=== PATIENT | female | born 1970 | race African-American/Black ===

== ENCOUNTER 2017-03-05 15:16 | Emergency (ER) | payer OTHER ==
[~2017-03-05 15:16] MED LIST: ALBU6.7H INH; AMLO5TAB22 PO; ECHI80CA PO; METF500 PO; NORV10TA PO; OMEP20TA39 PO; POTA75TA2 PO
[2017-03-05 15:19] VITALS: BP 136/91; PULSE 72; RESP 14; TEMP 97.2; O2SAT 99
--- NOTE | 2017-03-05 15:39 | PD ---
Physical Exam Time Seen by Provider: 15:38 Narrative Pt presents for evaluation of right hip and knee pain after misstepping on the steps at school. She did not fall. Has history of right hip and knee pain; followed by [facility] orthopedic group. No other symptoms to report. Data Data Last Documented VS Vital Signs Date Time Temp Pulse Resp B/P (MAP) Pulse Ox O2 Delivery O2 Flow Rate FiO2 03/05/17 18:37 03/05/17 15:19 97.2 72 14 99 Orders Orders Hip, Uni(Ap&Lat) Wo Ap Pelvis (03/05/17 ) Knee, Complete (4vws) (03/05/17 ) Ketorolac Inj (Toradol Inj) (03/05/17 17:15) Splint Or Brace Apply/Monitor (03/05/17 18:24) Immobilizer Knee 20 Inch (03/05/17 ) [facility] Medical Record Reviewed: Yes Supervised Visit with SANIA: No Scripts Ibuprofen (Ibuprofen) 800 Mg Tab 800 MG PO Q6HR Y for PAIN, #40 TAB 0 Refills Prov: Dian Adams DO 03/05/17 Condition: Stable Lilliana Miner Mar 05, 2017 15:39
[2017-03-05] MEDS ORDERED: KETOROLAC TROMETHAMINE 60 MG/2 ML (IM) VIAL IM ONE (17:15)
--- NOTE | 2017-03-05 17:25 | PD ---
HPI Chief Complaint: Musculoskeletal Complaint Time Seen by Provider: 17:00 Travel History International Travel<30 days: No Contact w/Intl Traveler<30days: No Traveled to known affect area: No History of Present Illness HPI 46 year old female presents for evaluation of right knee and hip pain. She reports chronic right knee and hip pain. She reports that she was diagnosed with arthritis in both joints. She reports that today at work she was walking down some stairs and she "skipped a step" and landed awkwardly on her right leg. Since then she has had increased pain in her right hip and her right knee. The pain is an aching pain is worse with movement. She denies any other injuries and she has no other complaints. PFSH Past Medical History Arthritis: Yes (CERVICAL SPINE) Cancer: No Cardiovascular Problems: No Diabetes: Yes (PREDIABETIC) Diminished Hearing: No Endocrine: Yes Glaucoma: No Genitourinary: No Headaches: Yes (H/A PAIN OFF AND ON X 15 YRS) Hepatitis: No Hiatal Hernia: No Hypertension: Yes Immune Disorder: No Musculoskeletal: Yes (CHRONIC NECK PAIN/ARTHRITIS) Neurologic: No Psychiatric: No Reproductive: No (PARTIAL HYSTERECTOMY FOR FIBROID TUMORS) Respiratory: Yes (HX OF "SINUS PROBLEMS",SLEEP APNEA) Immunizations Current: Yes Thyroid Disease: No Menopausal: Yes : 2 Miscarriage: 1 : 1 Past Surgical History Abdominal Surgery: No AICD: No Body Medical Devices: NONE Cardiac Surgery: No Ear Surgery: No Endocrine Surgery: No Eye Surgery: No Genitourinary Surgery: No Gynecologic Surgery: Yes (PARTIAL HYSTERECTOMY) Hysterectomy: Yes (PARTIAL) Joint Replacement: No Oral Surgery: No Pacemaker: No Thoracic Surgery: No Other Surgery: No Social History Alcohol Use: No Tobacco Use: No Substance Use: No Allergies-Medications (Allergen,Severity, Reaction): Coded Allergies: *MDRO Multi-Drug Resistant Organism (Unverified Allergy, Unknown, 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) - 12/28/13 codeine (Unverified Adverse Reaction, Severe, HEADACHES, 01/16/17) Reported Meds & Prescriptions Reported Meds & Active Scripts Active Ibuprofen 800 Mg Tab 800 Mg PO Q6HR PRN Proventil Hfa (Albuterol Sulfate) 6.7 Gm Aero 2 Puff INH Q4H * SHAKE WELL BEFORE USE * Reported Potassimin (Potassium) 75 Mg Tab 75 Mg PO DAILY Echinacea 80 Mg Cap 1 Tab PO EVERY OTHER DAY PRN Amlodipine Besylate 5 mg (Amlodipine Besylate) 5 Mg Tab 1 Tab PO DAILY Hm Omeprazole (Omeprazole) 20 Mg Tab 20 Mg PO DAILY Glucophage 500 mg (Metformin HCl) 500 Mg Tab 500 Mg PO BIDPC Norvasc (Amlodipine Besylate) 10 Mg Tab 10 Mg PO DAILY Review of Systems Musculoskeletal: Positive: Pain, No: Limited ROM Skin: Positive Other (denies open wounds) Physical Exam Narrative GENERAL: Well-developed well-nourished female in no acute distress SKIN: Warm and dry. No bruising or soft tissue swelling CARDIOVASCULAR: Regular rate and rhythm. No murmur appreciated. RESPIRATORY: No accessory muscle use. Clear to auscultation. Breath sounds equal bilaterally. GASTROINTESTINAL: Abdomen soft, non-tender, nondistended. Hepatic and splenic margins not palpable. MUSCULOSKELETAL: No obvious deformities. Generalized tenderness to palpation to the right knee joint and lateral right hip. There is no obvious deformity, no crepitus. The patient has pain with flexion and extension of the right hip and knee. She is able to ambulate with a limp. NEUROLOGICAL: Awake and alert. No obvious cranial nerve deficits. Motor grossly within normal limits. Normal speech. Data Data Last Documented VS Vital Signs Date Time Temp Pulse Resp B/P (MAP) Pulse Ox O2 Delivery O2 Flow Rate FiO2 03/05/17 15:19 97.2 72 14 136/91 (106) 99 Orders Orders Hip, Uni(Ap&Lat) Wo Ap Pelvis (03/05/17 ) Knee, Complete (4vws) (03/05/17 ) Ketorolac Inj (Toradol Inj) (03/05/17 17:15) Splint Or Brace Apply/Monitor (03/05/17 18:24) [facility] Medical Decision Making Medical Screen Exam Complete: Yes Emergency Medical Condition: Yes Medical Record Reviewed: Yes Differential Diagnosis Exacerbation of chronic pain, osteoarthritis, ligamentous disruption, meniscal disruption, tibial plateau fracture Narrative Course 46-year-old female with chronic right knee and hip pain present with worsening pain in both joints after skipping a step walking on some stairs and landing awkwardly on her right leg. X-ray imaging obtained reveal no acute abnormalities. The patient is being discharged with a knee immobilizer and a short course of ibuprofen. Diagnosis Primary Impression: Strain of right hip Qualified Codes: S76.011A - Strain of muscle, fascia and tendon of right hip, initial encounter Additional Impression: Strain of right knee Qualified Codes: S86.911A - Strain of unspecified muscle(s) and tendon(s) at lower leg level, right leg, initial encounter Additional Instructions: Medication as needed, take with meals, follow-up with primary care physician and return for any emergent medical conditions. Scripts Ibuprofen (Ibuprofen) 800 Mg Tab 800 MG PO Q6HR Y for PAIN, #40 TAB 0 Refills Prov: Dian Adams DO 03/05/17 Disposition: 01 DISCHARGE HOME Condition: Stable Rene Mcfarland Mar 05, 2017 17:25
--- NOTE | 2017-03-05 18:03 | RADRPT ---
EXAM DATE/TIME: 03/05/2017 17:49 [facility] COMPARISON: KNEE RIGHT COMPLETE (4VWS), October 31, 2015, 15:57. INDICATIONS : Right hip and knee pain after missing a step. MEDICAL HISTORY : Arthritis. SURGICAL HISTORY : None. ENCOUNTER: Subsequent ACUITY: 1 day PAIN SCORE: 7/10 LOCATION: Right knee FINDINGS: Four view examination of the right knee demonstrates no evidence of fracture or dislocation. Bony mi neralization is normal. The articular surfaces are intact. The suprapatellar soft tissues have a no rmal configuration. CONCLUSION: 1. No acute fracture or dislocation. Lj Brown MD on March 05, 2017 at 18:01 Board Certified Radiologist. This report was verified electronically.
--- NOTE | 2017-03-05 18:09 | RADRPT ---
EXAM DATE/TIME: 03/05/2017 17:49 [facility] COMPARISON: No previous studies available for comparison. INDICATIONS : Right hip and knee pain after missing a step. MEDICAL HISTORY : Arthritis. SURGICAL HISTORY : None. ENCOUNTER: Initial ACUITY: 1 day PAIN SCORE: 7/10 LOCATION: Right hip FINDINGS: A two view examination of the right hip was performed. The primary and secondary trabecular pattern of the femoral neck is intact. No fracture is seen. The right hip joint is normally aligned. There i s some hypertrophic change of the superior lateral acetabulum. CONCLUSION: No acute disease. Sesar Dyer MD on March 05, 2017 at 18:05 Board Certified Radiologist. This report was verified electronically.
[2017-03-05] MEDS ORDERED: IBUP800T23 PO (18:22)
== END 2017-03-05 18:38 | disposition home or self-care (01) ==
LOC: NEPK 15:16
DX: S76.011A Strain of muscle, fascia and tendon of right hip, initial encounter (principal); S86.911A Strain of unspecified muscle(s) and tendon(s) at lower leg level, right leg, initial encounter; M19.90 Unspecified osteoarthritis, unspecified site; R73.03 Prediabetes; I10 Essential (primary) hypertension; W10.9XXA Fall (on) (from) unspecified stairs and steps, initial encounter; Y93.01 Activity, walking, marching and hiking; Z79.899 Other long term (current) drug therapy
CPT/HCPCS: 73502; 73564; 96372; 99284; J1885; L1830

== ENCOUNTER 2017-04-07 15:16 | Emergency (ER) | payer OTHER ==
[~2017-04-07] VITALS: Ht 175.3 cm; Wt 124.0 kg
[~2017-04-07 15:16] MED LIST changes: +IBUP1TAB7 PO
[2017-04-07 15:27] VITALS: BP 133/79; PULSE 88; RESP 16; TEMP 98.5; O2SAT 96
--- NOTE | 2017-04-07 15:41 | PD ---
HPI Chief Complaint: Musculoskeletal Complaint Time Seen by Provider: 15:34 Travel History International Travel<30 days: No Contact w/Intl Traveler<30days: No Traveled to known affect area: No History of Present Illness HPI 46 year old female here for c/o of upper back pain & muscle spasm. She reports hx of arthritis in her back & similar episodes of muscle spasms in the past. She denies fever/chills, CP, palpitations, SOB. Pain is constatnt worse with movement & relieved with rest. severity 6/10. PFSH Past Medical History Arthritis: Yes (CERVICAL SPINE) Cancer: No Cardiovascular Problems: No Diabetes: Yes (PREDIABETIC) Diminished Hearing: No Endocrine: Yes Glaucoma: No Genitourinary: No Headaches: Yes (H/A PAIN OFF AND ON X 15 YRS) Hepatitis: No Hiatal Hernia: No Hypertension: Yes Immune Disorder: No Musculoskeletal: Yes (CHRONIC NECK PAIN/ARTHRITIS) Neurologic: No Psychiatric: No Reproductive: No (PARTIAL HYSTERECTOMY FOR FIBROID TUMORS) Respiratory: Yes (HX OF "SINUS PROBLEMS",SLEEP APNEA) Immunizations Current: Yes Thyroid Disease: No ?: Not Menopausal: Yes : 2 Miscarriage: 1 : 1 Past Surgical History Abdominal Surgery: No AICD: No Body Medical Devices: NONE Cardiac Surgery: No Ear Surgery: No Endocrine Surgery: No Eye Surgery: No Genitourinary Surgery: No Gynecologic Surgery: Yes (PARTIAL HYSTERECTOMY) Hysterectomy: Yes Joint Replacement: No Oral Surgery: No Pacemaker: No Thoracic Surgery: No Other Surgery: No Social History Alcohol Use: No Tobacco Use: No Substance Use: No Allergies-Medications (Allergen,Severity, Reaction): Coded Allergies: *MDRO Multi-Drug Resistant Organism (Unverified Allergy, Unknown, 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) - 12/28/13 Reported Meds & Prescriptions Reported Meds & Active Scripts Active Ibuprofen 800 Mg Tab 800 Mg PO Q6HR PRN Proventil Hfa (Albuterol Sulfate) 6.7 Gm Aero 2 Puff INH Q4H * SHAKE WELL BEFORE USE * Reported Potassimin (Potassium) 75 Mg Tab 75 Mg PO DAILY Echinacea 80 Mg Cap 1 Tab PO EVERY OTHER DAY PRN Amlodipine Besylate 5 mg (Amlodipine Besylate) 5 Mg Tab 1 Tab PO DAILY Hm Omeprazole (Omeprazole) 20 Mg Tab 20 Mg PO DAILY Glucophage 500 mg (Metformin HCl) 500 Mg Tab 500 Mg PO BIDPC Norvasc (Amlodipine Besylate) 10 Mg Tab 10 Mg PO DAILY Review of Systems Except as stated in HPI: all other systems reviewed are Neg General / Constitutional: No: Fever Eyes: No: Visual changes HENT: No: Headaches Cardiovascular: No: Chest Pain or Discomfort Respiratory: No: Shortness of Breath Physical Exam Narrative GENERAL: alert, well appearing female who is sleeping on the stretcher. She is easily arousable. SKIN: Warm and dry. HEAD: Normocephalic. EYES: No scleral icterus. No injection or drainage. NECK: Supple, trachea midline. No JVD or lymphadenopathy. TTP right trapezius muscle. CARDIOVASCULAR: Regular rate and rhythm without murmurs, gallops, or rubs. RESPIRATORY: Breath sounds equal bilaterally. No accessory muscle use. GASTROINTESTINAL: Abdomen soft, non-tender, nondistended. MUSCULOSKELETAL: No cyanosis, or edema. BACK: Nontender without obvious deformity. No CVA tenderness. Data Data Last Documented VS Vital Signs Date Time Temp Pulse Resp B/P (MAP) Pulse Ox O2 Delivery O2 Flow Rate FiO2 04/07/17 15:27 98.5 88 16 133/79 (97) 96 Orders Orders Ketorolac Inj (Toradol Inj) (04/07/17 15:45) [facility] Medical Decision Making Medical Screen Exam Complete: Yes Emergency Medical Condition: Yes Differential Diagnosis upper back strain, trapezius muscle spasm, cervical strain Narrative Course 46 year old female here for c/o of upper back pain & muscle spasm. She reports hx of arthritis in her back & similar episodes of muscle spasms in the past. She denies fever/chills, CP, palpitations, SOB. On exam patient has R trapezius muscle spasm with no cervical midline tenderness. patient instructed to stop the Flexeril & start Robaxin PRN Diagnosis Primary Impression: Upper back strain Qualified Codes: S29.012A - Strain of muscle and tendon of back wall of thorax , initial encounter Referrals: [facility] Additional Instructions: take the medication as prescribed. stop the flexeril & start Robaxin as needed for muscle spasm follow up with your doctor Scripts Methocarbamol (Robaxin) 500 Mg Tab 500 MG PO TID for Muscle Spasm for 4 Days, TAB 0 Refills Prov: Mariaelena Preciado 04/07/17 Disposition: 01 DISCHARGE HOME Condition: Stable Mariaelena Preciado Apr 07, 2017 15:41
[2017-04-07] MEDS ORDERED: KETOROLAC TROMETHAMINE 60 MG/2 ML (IM) VIAL IM ONE (15:45)
[2017-04-07] MEDS ORDERED: CYCL5TAB PO (15:46)
[2017-04-07] MEDS ORDERED: BP MEDS (15:46)
[2017-04-07] MEDS ORDERED: ROBA500T PO (15:49)
== END 2017-04-07 16:08 | disposition home or self-care (01) ==
LOC: PHEFT 15:16
DX: S29.012A Strain of muscle and tendon of back wall of thorax, initial encounter (principal); I10 Essential (primary) hypertension; X58.XXXA Exposure to other specified factors, initial encounter
CPT/HCPCS: 96372; 99284; J1885

== ENCOUNTER 2017-07-19 07:34 | Inpatient (IN) | payer OTHER ==
[~2017-07-19] VITALS: Ht 175.3 cm; Wt 132.8 kg
[~2017-07-19 07:34] MED LIST changes: -ALBU6.7H INH; -AMLO5TAB22 PO; +CYCL5TAB PO; -ECHI80CA PO; +GABA300C5 PO; +HYDR-3516 PO; -IBUP1TAB7 PO; +LISI2.5T3 PO; -METF500 PO; +METF500T PO; -NORV10TA PO; -OMEP20TA39 PO; -POTA75TA2 PO; +ROBA500T PO; +TRIA37.53 PO
[2017-07-19] MEDS ORDERED: LACTATED RINGER'S 1000 ML INJ 1,000 ML IV SCH (08:00)
[2017-07-19] MEDS ORDERED: POVIDONE IODINE 5% (ANTISEPSIS KIT) 4 APPLICATIONS EACH NARE PRN (08:15)
[2017-07-19] MEDS ORDERED: LACTATED RINGER'S 1000 ML IV PRN (08:15)
[2017-07-19] MEDS ORDERED: CHLORHEXIDINE GLUCONATE 2 % 1 PACK (2 CLOTHS) TOPICAL PRN (08:15)
[2017-07-19] MEDS ORDERED: SODIUM CHLORID 0.9% 500 ML IV PRN (08:15)
[2017-07-19] MEDS ORDERED: ceFAZolin 2 GM PREMIX 50 ML IV SCH (08:15)
[2017-07-19] MEDS ORDERED: METOPROLOL TARTRATE 25 MG TAB PO PRN (08:15)
[2017-07-19] MEDS ORDERED: AMLO2.5T PO (09:39)
[2017-07-19] MEDS ORDERED: VITATAB43 PO (10:00)
[2017-07-19] MEDS ORDERED: SACC1CAP3 PO (10:00)
[2017-07-19 10:26] LABS: AUTOMATED NEUTROPHIL # 6.4 TH/MM3 (1.8-7.7); BASOPHIL % 0.4 % (0.0-2.0); EOSINOPHIL # 0.1 TH/MM3 (0-0.4); EOSINOPHIL % 1.3 % (0.0-4.0); HEMOGLOBIN 13.4 GM/DL (11.6-15.3); LYMPH % 27.1 % (9.0-44.0); LYMPHOCYTE # 2.7 TH/MM3 (1.0-4.8); MEAN CELL VOLUME 88.9 FL (80.0-100.0); MEAN CORPUSCULAR HEMOGLOBIN 29.8 PG (27.0-34.0); MEAN CORPUSCULAR HGB CONC 33.5 % (32.0-36.0); MONO % 6.6 % (0.0-8.0); MONOCYTE # 0.7 TH/MM3 (0-0.9); NEUT % 64.6 % (16.0-70.0); PLATELET COUNT 344 TH/MM3 (150-450); RED CELL DISTRIBUTION WIDTH 13.6 % (11.6-17.2); WHITE BLOOD COUNT 9.9 TH/MM3 (4.0-11.0)
--- NOTE | 2017-07-19 10:31 | RADRPT ---
EXAM DATE/TIME: 07/19/2017 09:47 [facility] COMPARISON: No previous studies available for comparison. INDICATIONS : Right hand pain, no injury. MEDICAL HISTORY : None. SURGICAL HISTORY : None. ENCOUNTER: Initial ACUITY: 4 - 6 days PAIN SCORE: 10/10 LOCATION: Right entire hand FINDINGS: Three view examination of the right hand demonstrates no soft tissue swelling, dislocation, or fractu re. The carpal bones appear intact. The interphalangeal and metacarpophalangeal joints are intact. Bony mineralization is normal. CONCLUSION: Unremarkable examination of the right hand. Humberto Bose Jr., MD on July 19, 2017 at 10:29 Board Certified Radiologist. This report was verified electronically.
--- NOTE | 2017-07-19 10:32 | RADRPT ---
EXAM DATE/TIME: 07/19/2017 09:51 [facility] COMPARISON: No previous studies available for comparison. INDICATIONS : Right wrist pain, no injury. MEDICAL HISTORY : None. SURGICAL HISTORY : None. ENCOUNTER: Initial ACUITY: 4 - 6 days PAIN SCORE: 10/10 LOCATION: Right entire wrist FINDINGS: 3 views of the wrist reveal a subtle linear ossification involving the dorsal aspects of the carpus o nly seen on the lateral projection. This has a heterogeneous density. No cortical margination is obse rved. No overlying soft tissue swelling. Remaining bony structures are unremarkable. Joint spaces are preserved. CONCLUSION: Suspected old trauma to the hamate. No acute abnormality. Humberto Bose Jr., MD on July 19, 2017 at 10:30 Board Certified Radiologist. This report was verified electronically.
[2017-07-19 10:57] LABS: RHEUMATOID FACTOR SCREEN NEGATIVE (NEGATIVE)
[2017-07-19] MEDS ORDERED: PHENYLEPHRINE HCL 10 MG/ML VIAL IV ONE (12:00)
[2017-07-19] MEDS ORDERED: SODIUM CHLORID 0.9% 500 ML INJ 500 ML IV ONE (12:00)
[2017-07-19] MEDS ORDERED: VECURONIUM BROMIDE 20 MG VIAL IV ONE (12:00)
[2017-07-19] MEDS ORDERED: ROCURONIUM INJ 50 MG/5 ML SYRINGE IV PUSH ONE (12:00)
[2017-07-19] MEDS ORDERED: NORMOSOL R INJ 1,000 ML IV ONE (12:00)
[2017-07-19] MEDS ORDERED: METOPROLOL TARTRATE 5 MG/5 ML VIAL IV ONE (12:00)
[2017-07-19] MEDS ORDERED: PROPOFOL 200 MG/20 ML AMP IV ONE (12:00)
[2017-07-19] MEDS ORDERED: ePHEDrine/NS 25 MG/5 ML SYRINGE IV ONE (12:00)
[2017-07-19] MEDS ORDERED: LIDOCAINE HCL 1% PF 5 ML SYRINGE OTHER ONE (12:00)
[2017-07-19] MEDS ORDERED: LACTATED RINGER'S 1000 ML INJ 2,000 ML IV ONE (12:00)
[2017-07-19] MEDS ORDERED: DEXAMETHASONE SOD PHOS 4 MG/ML VIAL IV ONE (12:00)
[2017-07-19] MEDS ORDERED: SODIUM CHLOR 0.9% 250 ML INJ 250 ML IV ONE (12:00)
[2017-07-19] MEDS ORDERED: PHENYLEPH/NS 1000 MCG/10 ML SYR IV ONE (12:00)
[2017-07-19] MEDS ORDERED: ceFAZolin INJ 1,000 MG VIAL IV ONE ×2 (12:00→19:00)
[2017-07-19] MEDS ORDERED: GELFOAM SIZE 100 ONE (12:46)
[2017-07-19] MEDS ORDERED: GENTAMICIN SULFATE 80 MG/2 ML VIAL ONE (12:46)
[2017-07-19] MEDS ORDERED: THROMBIN (TOPICAL) 5,000 UNIT VIAL ONE (12:46)
[2017-07-19] MEDS ORDERED: LIDOCAINE 1%/EPINEPHrine 1:100,000 SOLN 30 ML VIAL ONE (12:49)
[2017-07-19] MEDS ORDERED: PROPOFOL 500 MG/50 ML INJ 100 ML ONE (13:12)
[2017-07-19] MEDS ORDERED: ACETAMINOPHEN 1000 MG/100 ML 100 ML IV ONE (13:12)
[2017-07-19] MEDS ORDERED: fentaNYL CITRATE 1000 MCG/20 ML VIAL ONE ×2 (14:51→19:33)
--- NOTE | 2017-07-19 14:51 | EKG ---
Date Performed: 07/19/2017 Time Performed: 07:58:05 PTAGE: 46 years EKG: Sinus rhythm NORMAL ECG PREVIOUS TRACING : 09/19/2014 23.08 Since the prior tracing, there has been no significant herbert DOCTOR: Blake Galaviz Interpretating Date/Time 07/19/2017 14:43:39
[2017-07-19] MEDS ORDERED: PROPOFOL 500 MG/50 ML INJ 250 ML ONE (15:04)
[2017-07-19] MEDS ORDERED: PROPOFOL 500 MG/50 ML INJ 50 ML ONE (19:33)
[2017-07-19] MEDS ORDERED: PROPOFOL 1000 MG/100 ML INJ 100 ML ONE (20:38)
--- NOTE | 2017-07-19 21:30 | RADRPT ---
EXAM DATE/TIME: 07/19/2017 14:25 [facility] COMPARISON: No previous studies available for comparison. INDICATIONS : Cervical fusion. MEDICAL HISTORY : None. SURGICAL HISTORY : None. ENCOUNTER: Initial ACUITY: 1 day PAIN SCORE: Non-responsive. LOCATION: cervical spine FINDINGS: A single lateral view of the cervical spine was performed. Disc prosthesis noted at C4-5 and C6-7. CONCLUSION: 1. Fusion as above Tom Carter MD on July 19, 2017 at 21:28 Board Certified Radiologist. This report was verified electronically.
[2017-07-19 21:34] VITALS: O2SAT 100
[2017-07-19 21:45] VITALS: BP 174/91; PULSE 106; RESP 18; TEMP 100.7; O2SAT 100
[2017-07-19] MEDS ORDERED: DEXTROSE 50% IN WATER 50 ML VIAL(D50) IV PUSH PRN (21:45)
[2017-07-19] MEDS ORDERED: TERBUTALINE INJ 1 MG/ML AMP SQ PRN (21:45)
[2017-07-19] MEDS ORDERED: PROPOFOL 1000 MG/100 ML IV PRN (21:45)
[2017-07-19] MEDS ORDERED: ENALAPRILAT 1.25 MG/ML VIAL IV PUSH PRN (21:45)
[2017-07-19] MEDS ORDERED: GLUCAGON 1 MG/ML VIAL OTHER PRN (21:45)
[2017-07-19] MEDS ORDERED: PHENYLEPHRINE 40 MG in D5W 500 ML IV PRN (21:45)
--- NOTE | 2017-07-19 21:58 | PD.OP ---
Operative Report Date of Surgery: Jul 19, 2017 Preoperative Diagnosis: (1) HNP (herniated nucleus pulposus), cervical (2) Cervical disc disease with myelopathy 1. C4 5 and C6 7 herniated nucleus pulposus, possible C4 5 osteophytic disc complex 2. Cervical stenosis with myelopathy Postoperative Diagnosis: (1) HNP (herniated nucleus pulposus), cervical (2) Cervical disc disease with myelopathy 1. C4 5 and C6 7 herniated nucleus pulposus, possible C4 5 osteophytic disc complex 2. Cervical stenosis with myelopathy Procedure: 1. C4 5 and C6 7 anterior cervical discectomy, resection sequestered herniated nucleus pulposis or spinal cord decompression 2. C4 5 and C6 7 artificial disc placement (Mobi-C) Anesthesia: Gen. endotracheal Surgeon: Jose Luis Coffey Admiral[employer] Lawyer(s): Hari Bettencourt Operation and Findings: Findings: Large sequestered disc herniation extending through her annular tear at the left paramedian C4 5 level and central C6-7 level. Procedure in detail: The patient was brought into the operating room and positioned in supine position on the 3080 table with the head and neck in neutral position. Montoya catheter was placed. Lines were established by Anesthesia. Gen. endotracheal anesthesia was induced , taking care not to significantly flex or extend the patient's neck during intubation and positioning. Per anesthesia report, the patient was a difficult intubation. Leads for intraoperative neuro monitoring were placed and a baseline study obtained. All extremities were appropriately padded. The neck and upper chest were shaved with clippers and sterilely prepped and draped. Appropriate timeout procedure was performed with all personnel present and in agreement 1% Xylocaine with epinephrine was used for local infiltration over the incision site which was made transversely at the left C 5-6 level and carried sharply down through the platysma muscle. The exposure was continued medial to the sternocleidomastoid muscle and carotid artery, and lateral to the trachea and esophagus. The prevertebral fascia was elevated away from the anterior longitudinal ligament with a Kitner sponge. The longus coli muscle on each side was elevated with the Lozano elevator. The self-retaining retractor was placed with the blades beneath the longus coli muscle on each side. The appropriate levels were confirmed with intraoperative C-arm and preoperative imaging studies. The microscope was brought into place and used for the remainder of the procedure including the closure. The 14 mm distraction pins were used as needed for gentle distraction during the procedure. The procedure was performed sequentially at the C6 7 followed by the C4 5 levels. The disc and annulus was incised with a 15 blade knife and discectomy performed with pituitary biopsy forceps and straight and angled curettes. The endplates were thoroughly cleaned with a curette. The TPS drill with the 4 mm barrel bur was used to remove the posterior margin of the vertebral body to remove any osteophytes and allow adequate access to the anterior spinal canal. The thin ligament dissector was used to free up the posterior annulus and ligament from the vertebral body margin. The remainder of the resection of the posterior annulus and ligament as well as the posterior osteophyte and bilateral uncovertebral joint as needed was performed with the 2 and 3 mm thin footplate Kerrison rongeurs. An annular tear was noted at the midline C6 7 and left paramedian C4 5 levels. A large herniated nucleus pulposus was encountered posterior to the annulus at each level and was lifted away from the thecal sac with the thickened ligament dissector and removed. The appropriate size Mobi- C implant was then chosen using the trial. Using anatomic landmarks, and AP and lateral C-arm imaging, the appropriate size Mobi - C then placed with a good fit of the implant. The blunt nerve hook was used to probe beneath the implant to ensure that there was no impingement on the thecal sac or exiting nerve roots. Lateral C-arm imaging was very difficult and the patient due to her size. Repeated images were taken to verify the position of the artificial disks. The entire construct was checked with intraoperative C-arm and felt to be satisfactory. The 10 Wolof drain was brought out through a small incision in the left lower neck and secured to the skin with nylon suture and attached to sterile suction. The closure was performed with 3-0 Vicryl running for the platysma and interrupted for the subcutaneous closure, with 4-0 Vicryl running for the subcuticular closure. A dressing of sterile Mastisol, Steri-Strips, and Primapore dressing was placed. The patient was taken to recovery room in stable condition. All counts were correct at the end of the case. Estimated blood loss was 500 cc No specimen was sent to pathology. Intraoperative neuro monitoring remained stable during the procedure. Jose Luis Coffey MD Jul 19, 2017 21:58
[2017-07-19 22:00] VITALS: BP 170/90; PULSE 106; PULSE 107; RESP 17; TEMP 100; O2SAT 100
[2017-07-19] MEDS ORDERED: PILL SPLITTER OTHER PRN (22:00)
[2017-07-19] MEDS ORDERED: 1/2 NS + KCL 20 MEQ INJ 1,000 ML IV SCH (22:00)
[2017-07-19] MEDS: LABETALOL HCL 100 MG/20 ML VIAL IV PRN ×2 (22:24→23:21)
--- NOTE | 2017-07-19 22:30 | RADRPT ---
EXAM DATE/TIME: 07/19/2017 22:03 [facility] COMPARISON: CHEST PA & LAT, September 20, 2014, 4:03. INDICATIONS : Evaluate ETT tube placement MEDICAL HISTORY : Arthritis. SURGICAL HISTORY : Fusion, cervical. ENCOUNTER: Initial ACUITY: 1 day PAIN SCORE: Non-responsive. LOCATION: chest FINDINGS: A single view of the chest demonstrates bilateral airspace disease, right greater than left. Endotrac heal tube in satisfactory vision. No effusion or pneumothorax. CONCLUSION: 1. Intubation with endotracheal tube in satisfactory position. Tom Carter MD on July 19, 2017 at 22:25 Board Certified Radiologist. This report was verified electronically.
[2017-07-19] MEDS: PROPOFOL 1000 MG/100 ML INJ 100 ML IV PRN (22:46)
[2017-07-19 23:57] VITALS: O2SAT 100
[2017-07-20] VITALS (20 sets, daily range): BP systolic 114–176; BP diastolic 71–85; PULSE 97–122; RESP 14–29; TEMP 98.5–101; O2SAT 93–100
[2017-07-20] MEDS: PROPOFOL 1000 MG/100 ML INJ 100 ML IV PRN ×3 (01:55→06:27)
[2017-07-20 04:23] LABS: AUTOMATED NEUTROPHIL # 12.3 TH/MM3 (1.8-7.7); BASOPHIL % 0.1 % (0.0-2.0); HEMATOCRIT 36.2 % (35.0-46.0); HEMOGLOBIN 12.2 GM/DL (11.6-15.3); LYMPH % 11.1 % (9.0-44.0); LYMPHOCYTE # 1.7 TH/MM3 (1.0-4.8); MEAN CELL VOLUME 89.1 FL (80.0-100.0); MEAN CORPUSCULAR HEMOGLOBIN 30.1 PG (27.0-34.0); MEAN CORPUSCULAR HGB CONC 33.7 % (32.0-36.0); MEAN PLATELET VOLUME 6.9 FL (7.0-11.0); MONO % 6.4 % (0.0-8.0); NEUT % 82.4 % (16.0-70.0); PLATELET COUNT 331 TH/MM3 (150-450); RED BLOOD COUNT 4.07 MIL/MM3 (4.00-5.30); WHITE BLOOD COUNT 14.9 TH/MM3 (4.0-11.0)
[2017-07-20 04:29] LABS: PROTHROMBIN TIME - PATIENT 10.3 SEC (9.8-11.6)
--- NOTE | 2017-07-20 04:39 | PD.CONS ---
[facility] Service Critical Care Medicine Consult Requested By Dr. Leach Reason for Consult Vent management Primary Care Physician Priyanka Potter MD History of Present Illness 46 yo F with PMH of DM, hypertension, obesity, obstructive sleep apnea, cervical stenosis with myelopathy who has undergone C4/C5 and C6/C67 discectomy and disk prosthesis by Dr. Coffey. Discussed with Dr. Leach who received report that she had difficult airway due to poor neck mobility, intubated with Glidescope. Initially some hypoxia and bloody respiratory secretions during case but improved following lung recruitment. Received 3500 crystalloid, EBL 500, urine output 1 L. She received Decadron 8 mg IV in the OR. Review of Systems ROS Limitations: Intubated Past Family Social History Allergies: Coded Allergies: *MDRO Multi-Drug Resistant Organism (Unverified Allergy, Unknown, 04/07/17) MRSA (elbow wound) - 12/28/13 Past Medical History Asthma Obesity Obstructive sleep apnea Cervical myelopathy Hypertension Diabetes History of uterine fibroids now status post hysterectomy Past Surgical History Laparoscopic cholecystectomy and liver biopsy 01/31/[address] Jiang Supracervical hysterectomy, bilateral salpingectomy and cystoscopy by Dr. Haile Reported Medications Flexeril 5 mg by mouth 3 times a day Robaxin 500 mg by mouth 3 times a day Norvasc 5 mill grams by mouth daily Lortab 5/325 one every 6 hours as needed for pain Lisinopril 2.5 mg by mouth daily Neurontin 300 mg by mouth 3 times a day Triamterene 37.5 mg by mouth daily HCTZ 25 mg by mouth daily Probiotic daily Metformin 500 mg by mouth twice a day B-12 and folic acid supplementation 500/400 g by mouth daily Family History Unable to obtain directly from patient due to clinical condition. Records indicate that her mother had hypertension and father had amyloidosis Social History Unable to obtain directly from patient due to clinical condition. Records indicate that she was a lifetime nonsmoker without alcohol or illicit drug use Physical Exam Vital Signs Vital Signs Date Time Temp Pulse Resp B/P (MAP) Pulse Ox O2 Delivery O2 Flow Rate FiO2 07/20/17 04:00 107 07/20/17 04:00 100.4 107 14 164/80 (108) 100 07/20/17 03:06 100 50 07/20/17 02:00 105 07/20/17 01:00 100.5 07/20/17 00:00 101.0 97 14 176/85 (115) 100 Automatic Cuff 07/19/17 23:57 100 50 07/19/17 23:00 100 Mechanical Ventilator 50 07/19/17 22:00 100.0 107 17 170/90 (116) 100 Automatic Cuff 07/19/17 22:00 106 07/19/17 22:00 100 Mechanical Ventilator 100 07/19/17 21:45 100.7 106 18 174/91 (118) 100 07/19/17 21:34 100 50 07/19/17 10:02 98.8 89 18 142/90 (107) 97 Physical Exam Drips: Propofol 50 g per KG per minute 0.45 NaCl with 20 mEq of KCl per liter at 100 mL per hour GENERAL: Obese female who orotracheally intubated and on mechanical ventilation laying in ISC bed. SKIN: Warm and dry, adequately perfused HEAD: Atraumatic. Normocephalic. EYES: Pupils equal and round, 2 mm and reactive bilaterally. No scleral icterus. No injection or drainage. ENT: No nasal bleeding or discharge. Mucous membranes pink and moist, drooling. NECK: Trachea midline. No JVD. Cervical collar in place. SANTOSH drain with serosanginous output. Dressing in place anterior neck, clean/dry. CARDIOVASCULAR: Regular rate and rhythm. No murmurs rubs or gallops. RESPIRATORY: Orotracheally intubated and synchronous with ventilator. Clear to auscultation. Breath sounds equal bilaterally. Audible cuff leak is present when cuff deflated. GASTROINTESTINAL: Abdomen obese, soft, non-tender, nondistended. Bowel sounds present. MUSCULOSKELETAL: Extremities without clubbing, cyanosis, or edema. No obvious deformities. VASC: Left radial art line in place with distal perfusion intact. NEUROLOGICAL: Opens eyes to voice while on sedation. No obvious cranial nerve deficits. Follows commands by squeezing hands with normal hand net developer bilaterally. Moves lower extremities to command. Laboratory Laboratory Tests Test 07/19/17 09:35 07/19/17 09:55 07/19/17 22:57 07/20/17 04:08 White Blood Count 9.9 14.9 Red Blood Count 4.50 4.07 Hemoglobin 13.4 12.2 Hematocrit 40.0 36.2 Mean Corpuscular Volume 88.9 89.1 Mean Corpuscular Hemoglobin 29.8 30.1 Mean Corpuscular Hemoglobin Concent 33.5 33.7 Red Cell Distribution Width 13.6 14.0 Platelet Count 344 331 Mean Platelet Volume 7.0 6.9 Neutrophils (%) (Auto) 64.6 82.4 Lymphocytes (%) (Auto) 27.1 11.1 Monocytes (%) (Auto) 6.6 6.4 Eosinophils (%) (Auto) 1.3 0.0 Basophils (%) (Auto) 0.4 0.1 Neutrophils # (Auto) 6.4 12.3 Lymphocytes # (Auto) 2.7 1.7 Monocytes # (Auto) 0.7 1.0 Eosinophils # (Auto) 0.1 0.0 Basophils # (Auto) 0.0 0.0 CBC Comment DIFF FINAL DIFF FINAL Differential Comment Erythrocyte Sedimentation Rate 17 Rheumatoid Factor Screen NEGATIVE Rheumatoid Factor Titer Nasal Screen MRSA (PCR) MRSA NOT DETECTED Blood Gas Puncture Site ART LINE Blood Gas Patient Temperature 98.6 Blood Gas HCO3 24 Blood Gas Base Excess 0.5 Blood Gas Oxygen Saturation 96 Arterial Blood pH 7.43 Arterial Blood Partial Pressure CO2 37 Arterial Blood Partial Pressure O2 130 Arterial Blood Oxygen Content 17.3 Arterial Blood Carboxyhemoglobin 0.9 Arterial Blood Methemoglobin 1.5 Blood Gas Hemoglobin 12.7 Oxygen Delivery Device VENTILATOR Blood Gas Ventilator Setting SIMV-VC Blood Gas Inspired Oxygen 50 Prothrombin Time 10.3 Prothromb Time International Ratio 1.0 Activated Partial Thromboplast Time 25.1 Result Diagram: 07/19/17 0935 Assessment and Plan Problem List: (1) Difficult airway for intubation ICD Code: T88.4XXA - Failed or difficult intubation, initial encounter Status: Acute (2) Acute respiratory failure ICD Code: J96.00 - Acute respiratory failure, unspecified whether with hypoxia or hypercapnia Status: Acute (3) Aspiration into airway ICD Code: T17.908A - Unspecified foreign body in respiratory tract, part unspecified causing other injury, initial encounter Status: Acute (4) Cervical disc disease with myelopathy ICD Code: M50.00 - Cervical disc disorder with myelopathy, unspecified cervical region Status: Acute (5) HOOD (obstructive sleep apnea) ICD Code: G47.33 - Obstructive sleep apnea (adult) (pediatric) Status: Chronic (6) Asthma ICD Code: J45.909 - Unspecified asthma, uncomplicated Status: Chronic (7) Morbid obesity with BMI of 40.0-44.9, adult ICD Code: E66.01 - Morbid (severe) obesity due to excess calories; Z68.41 - Body mass index (BMI) 40.0-44.9, adult Status: Chronic (8) HTN (hypertension) ICD Code: I10 - Essential (primary) hypertension Status: Chronic (9) Diabetes mellitus ICD Code: E11.9 - Type 2 diabetes mellitus without complications Status: Chronic Assessment and Plan NEURO: Cervical stenosis with cervical myelopathy now status post C for C5 and C6-C7 discectomy with artificial disc placement by Dr. Coffey 07/19/17 Propofol for sedation. Target RASS -2 Lortab 7.5 one to 2 tabs as needed for pain. Morphine as needed for breakthrough pain. Continue Neurontin 300 mg by mouth 3 times a day Monitor SANTOSH output with management per neurosurgery Dr. Coffey following. RESP: Obstructive sleep apnea Asthma Difficult airway due to limited neck mobility To remain intubated overnight. Transition to PRVC tidal volume 450/rate 14/I time 0.8/PEEP 8/FiO2 50%. Wean FiO2 for sat greater than 92% CXR with bilateral opacities particularly R perihilar. Now with fever which may be secondary to aspiration given challenges of airway, Abx as per below. May have component of pulmonary edema and in effort to optimize for extubation will KVO IVF and give Lasix 40 mg IV now. Followup CXR. CPAP Trials later in the morning with plan to extubate. Reportedly was not using CPAP at home. Will encourage use post extubation. Duoneb q6 hours Albuterol q2 hours prn Decadron 8 mg IV given 07/19. CV: HTN Continue Norvasc 5 mg by mouth daily Continue lisinopril 2.5 mill grams by mouth daily Continue triamterene 37.5/HCTZ 25 mg by mouth daily Labetalol as needed for systolic blood pressure greater than 170 Follow-up 2-D echo GI: Morbid obesity Insert orogastric tube and placed to low intermittent wall suction. Swallow evaluation when extubated Encourage weight loss FEN/RENAL: ID: Received perioperative cefazolin. Now with fever and suspected aspiration given right perihilar infiltrate. Will obtain blood and sputum culture and initiate antibiotics with Unasyn 3 g IV every 6 hours to cover community acquired organisms/aspiration. Hold further perioperative cefazolin while on unasyn. HEME: Follow-up CBC ENDO: Diabetes mellitus Hold metformin Bedside glucose every 6 hours with low dose insulin sliding scale as indicated. PROPH: SCDs for DVT prophylaxis. Pharmacologic DVT prophylaxis when appropriate per neurosurgery. Protonix 40 mg IV daily for stress ulcer prophylaxis. ACCESS: Peripheral IV providing adequate access at this time. Left radial art line placed in OR 07/19/17. D/c today post extubation. Level III Consult Problem Qualifiers (1) Difficult airway for intubation: Qualified Codes: T88.4XXD - Failed or difficult intubation, subsequent encounter (2) Acute respiratory failure: Qualified Codes: J96.01 - Acute respiratory failure with hypoxia Danita Naranjo MD Jul 20, 2017 04:39
[2017-07-20 04:45] LABS: BICARBONATE 27.3 MEQ/L (21.0-32.0); CALCIUM 7.8 MG/DL (8.5-10.1); CREATININE 0.7 MG/DL (0.50-1.00)
[2017-07-20] MEDS ORDERED: GLUCAGON 1 MG/ML VIAL OTHER PRN (04:45)
[2017-07-20] MEDS ORDERED: ACETAMINOPHEN 650 MG/20.3 ML UDC PO PRN (04:45)
[2017-07-20] MEDS ORDERED: DEXTROSE 50% IN WATER 50 ML VIAL(D50) IV PUSH PRN (04:45)
[2017-07-20] MEDS ORDERED: FUROSEMIDE 20 MG/2 ML VIAL IV PUSH ONE (05:00)
[2017-07-20] MEDS ORDERED: FUROSEMIDE 40 MG/4 ML VIAL IV PUSH ONE (05:15)
[2017-07-20] MEDS ORDERED: MAGNESIUM SULFATE INJ 2 GM in SODIUM CHLORIDE 0.9% INJ 96 ML IV PRN (05:30)
[2017-07-20] MEDS ORDERED: POTASSIUM CHLORIDE 25 MEQ EFFERVESCENT TAB PO PRN (05:30)
[2017-07-20] MEDS ORDERED: POTASSIUM CHLOR 20 MEQ PREMIX 100 ML IV PRN ×2 (05:30)
[2017-07-20] MEDS ORDERED: MAGNESIUM SULFATE INJ 4 GM in SODIUM CHLORIDE 0.9% INJ 92 ML IV PRN (05:30)
[2017-07-20] MEDS ORDERED: SODIUM PHOSPHATE INJ 30 MMOL in SODIUM CHLOR 0.9% 250 ML INJ 240 ML IV PRN (05:30)
[2017-07-20] MEDS ORDERED: POTASSIUM CHLOR 40 MEQ PREMIX 100 ML IV PRN ×2 (05:30)
[2017-07-20] MEDS ORDERED: MAGNESIUM OXIDE 400 MG TAB PO PRN (05:30)
[2017-07-20] MEDS ORDERED: POTASSIUM PHOSPHATE MONOBASIC 500 MG TAB PO/TUBE PRN (05:30)
[2017-07-20] MEDS ORDERED: POTASSIUM PHOSPHATE INJ 30 MMOL in SODIUM CHLOR 0.9% 250 ML INJ 250 ML IV PRN (05:30)
[2017-07-20] MEDS ORDERED: POTASSIUM PHOSPHATE MONOBASIC 500 MG TAB PO PRN (05:30)
[2017-07-20] MEDS ORDERED: INSULIN ASPART SUPPLEMENTAL SCALE SQ SCH (06:00)
[2017-07-20] MEDS ORDERED: RESP: ALBUTEROL 2.5 MG/3 ML NEB (PRN) NEB (06:15)
[2017-07-20] MEDS: RESP: ALBUTEROL 2.5 MG/IPRATROPIUM 0.5 MG NEB (SCH) NEB ×4 (06:15→22:27)
[2017-07-20] MEDS: AMPICILLIN-SULBACTAM INJ 3 GM in SODIUM CHLORIDE 0.9% INJ 100 ML IV SCH ×4 (06:59→23:15)
[2017-07-20] MEDS: CHLORHEXIDINE 0.12% (ORAL KIT) 15 ML CUP MT SCH ×2 (07:41→20:00)
[2017-07-20] MEDS ORDERED: INSULIN NovoLIN REGULAR SUPPLEMENTAL SCALE SQ SCH (08:00)
--- NOTE | 2017-07-20 08:45 | HHI.NSPN ---
History Chief Complaint: Unable to obtain due to patient's clinical condition. Interval History 07/19: The patient presented to [facility] to undergo a C4-5 and C6-7 anterior cervical discectomy with placement of a Mobi-C device following resection of a sequestered herniated nucleus pulposis for spinal cord decompression. Post-operatively the patient was transferred to the ISC unit for further care and monitoring due to her not being able to be extubated. 07/20: When seen this morning the patient is intubated and mechanically ventilated. She was on propofol which was held when seen. She did open her eyes to voice and followed commands with all extremities. The bronchoscopy cart is outside the room. System Review Comments Unable to obtain due to patient's clinical condition. Exam Results Vital Signs Date Time Temp Pulse Resp B/P (MAP) Pulse Ox O2 Delivery O2 Flow Rate FiO2 07/20/17 07:57 100 40 07/20/17 07:00 Mechanical Ventilator 07/20/17 06:00 111 07/20/17 04:00 100.4 14 164/80 (108) Intake and Output 07/20/17 07/20/17 07/21/17 08:00 16:00 00:00 Intake Total 1069 ml Output Total 2245 ml Balance -1176 ml Physical Examination GENERAL: Drowsy, sedation being held. Opens eyes to voice and interacts. No apparent distress. HEENT: Normocephalic, atraumatic. PERRLA 3 mm brisk, EOM appear intact. Orally intubated. OGT. NECK: Fleetwood J cervical collar in place. Left anterior neck surgical incision w/ intact dressing w/o any shadowing, SANTOSH drain to bulb suction w/serosanguinous drainage, appears to be NTTP. Midline cervical spine appears to be NTTP. No JVD. Trachea midline. RESPIRATORY: Slightly coarse on the right, extremely decreased on the left, appears to have better excursion on right, non-laboured, intubated and mechanically ventilated. CARDIOVASCULAR: S1S2 w/rapid but regular rate w/o M/G/R, radial & pedal pulses 2 + bilaterally, cap refill < 2 sec, no pedal edema. Monitor is sinus tachycardia w/o any ectopy noted. GASTROINTESTINAL: Abdomen soft, nontender to palpation, bowel sounds not appreciated, OGT w/brownish particulate drainage to LIWS. GENITOURINARY: Montoya catheter to BSD w/clear yellow urine. MUSCULOSKELETAL: Moves all extremities to command. NEUROLOGICAL: Drowsy, sedation held. Opened eyes to voice but noted later to open spontaneously. PERRLA 3 mm brisk, EOM appear intact. Nonverbal, intubated. Squeezes with both hands and moves lower extremities to command. Gives thumbs up to command with right hand. Lab, Micro, Other Results Recent Impressions Wrist X-Ray 07/19/17 0000 Signed Impressions: Service Date/Time: July 09:51 - CONCLUSION: Suspected old trauma to the hamate. No acute abnormality. Humberto Bose Jr., MD Hand X-Ray 07/19/17 0000 Signed Impressions: Service Date/Time: July 09:47 - CONCLUSION: Unremarkable examination of the right hand. Humberto Bose Jr., MD Chest X-Ray 07/19/17 0000 Signed Impressions: Service Date/Time: July 22:03 - CONCLUSION: 1. Intubation with endotracheal tube in satisfactory position. Tom Carter MD Cervical Spine X-Ray 07/19/17 0000 Signed Impressions: Service Date/Time: July 14:25 - CONCLUSION: 1. Fusion as above Tom Carter MD Laboratory Tests Test 07/19/17 09:35 07/19/17 09:55 07/19/17 22:57 07/20/17 04:08 White Blood Count 9.9 TH/MM3 14.9 TH/MM3 Red Blood Count 4.50 MIL/MM3 4.07 MIL/MM3 Hemoglobin 13.4 GM/DL 12.2 GM/DL Hematocrit 40.0 % 36.2 % Mean Corpuscular Volume 88.9 FL 89.1 FL Mean Corpuscular Hemoglobin 29.8 PG 30.1 PG Mean Corpuscular Hemoglobin Concent 33.5 % 33.7 % Red Cell Distribution Width 13.6 % 14.0 % Platelet Count 344 TH/MM3 331 TH/MM3 Mean Platelet Volume 7.0 FL 6.9 FL Neutrophils (%) (Auto) 64.6 % 82.4 % Lymphocytes (%) (Auto) 27.1 % 11.1 % Monocytes (%) (Auto) 6.6 % 6.4 % Eosinophils (%) (Auto) 1.3 % 0.0 % Basophils (%) (Auto) 0.4 % 0.1 % Neutrophils # (Auto) 6.4 TH/MM3 12.3 TH/MM3 Lymphocytes # (Auto) 2.7 TH/MM3 1.7 TH/MM3 Monocytes # (Auto) 0.7 TH/MM3 1.0 TH/MM3 Eosinophils # (Auto) 0.1 TH/MM3 0.0 TH/MM3 Basophils # (Auto) 0.0 TH/MM3 0.0 TH/MM3 CBC Comment DIFF FINAL DIFF FINAL Differential Comment Erythrocyte Sedimentation Rate 17 mm/hr Rheumatoid Factor Screen NEGATIVE Rheumatoid Factor Titer IU/ML Nasal Screen MRSA (PCR) MRSA NOT DETECTED Blood Gas Puncture Site ART LINE Blood Gas Patient Temperature 98.6 Blood Gas HCO3 24 mmol/L Blood Gas Base Excess 0.5 mmol/L Blood Gas Oxygen Saturation 96 % Arterial Blood pH 7.43 Arterial Blood Partial Pressure CO2 37 mmHg Arterial Blood Partial Pressure O2 130 mmHg Arterial Blood Oxygen Content 17.3 Vol % Arterial Blood Carboxyhemoglobin 0.9 % Arterial Blood Methemoglobin 1.5 % Blood Gas Hemoglobin 12.7 G/DL Oxygen Delivery Device VENTILATOR Blood Gas Ventilator Setting SIMV-VC Blood Gas Inspired Oxygen 50 % Prothrombin Time 10.3 SEC Prothromb Time International Ratio 1.0 RATIO Activated Partial Thromboplast Time 25.1 SEC Blood Urea Nitrogen 6 MG/DL Creatinine 0.70 MG/DL Random Glucose 129 MG/DL Calcium Level 7.8 MG/DL Sodium Level 141 MEQ/L Potassium Level 3.7 MEQ/L Chloride Level 107 MEQ/L Carbon Dioxide Level 27.3 MEQ/L Anion Gap 7 MEQ/L Estimat Glomerular Filtration Rate 109 ML/MIN Test 07/20/17 05:43 Blood Gas Puncture Site ART LINE Blood Gas Patient Temperature 98.6 Blood Gas HCO3 24 mmol/L Blood Gas Base Excess 0.5 mmol/L Blood Gas Oxygen Saturation 96 % Arterial Blood pH 7.43 Arterial Blood Partial Pressure CO2 37 mmHg Arterial Blood Partial Pressure O2 131 mmHg Arterial Blood Oxygen Content 17.4 Vol % Arterial Blood Carboxyhemoglobin 0.7 % Arterial Blood Methemoglobin 1.7 % Blood Gas Hemoglobin 12.7 G/DL Oxygen Delivery Device VENTILATOR Blood Gas Ventilator Setting PRVC AV Blood Gas Inspired Oxygen 50 % Medical Decision Making Impression and Plan Impression: (1) HNP (herniated nucleus pulposus), cervical (2) Cervical disc disease with myelopathy 1. C4 5 and C6 7 herniated nucleus pulposus, possible C4 5 osteophytic disc complex 2. Cervical stenosis with myelopathy The patient is doing fair this morning. She remains intubated and mechanically ventilated but does open eyes spontaneously and follows commands. Reviewed labs for today. Leukocytosis, most likely inflammatory response to surgery. INR 1.0 and aPTT 25.1. Sodium 141. POD # 1 () s/p: 1. C4 5 and C6 7 anterior cervical discectomy, resection sequestered herniated nucleus pulposis or spinal cord decompression 2. C4 5 and C6 7 artificial disc placement (Mobi-C) Plan: Critical care management per [employer] Consultant. Neuro checks. Stat CT brain for any decline in neuro status. Fleetwood J cervical collar. Hold pharmacologic DVT prophylaxis. Mechanical DVT prophylaxis. Stress ulcer prophylaxis. Greg Frazier Jul 20, 2017 08:45
[2017-07-20] MEDS: PANTOPRAZOLE SODIUM 40 MG VIAL IVP SCH (08:51)
[2017-07-20] MEDS ORDERED: amLODIPine BESYLATE 5 MG TAB PO SCH (09:00)
[2017-07-20] MEDS ORDERED: PT:PROBIOTIC 250 MG PO SCH (09:00)
[2017-07-20] MEDS ORDERED: ROCURONIUM INJ 100 MG/10 ML VIAL IV ONE (09:00)
[2017-07-20] MEDS ORDERED: NON-FORMULARY DRUG (Cobalamine Combinations (Vitamin B12-Folic Acid) 1 TAB) PO SCH (09:00)
[2017-07-20] MEDS ORDERED: metFORMIN HCL 500 MG TAB PO SCH (09:00)
[2017-07-20] MEDS ORDERED: NON-FORMULARY DRUG (Saccharomyces Boulardii (Probiotic) 250 MG) PO SCH (09:00)
[2017-07-20] MEDS ORDERED: NON-FORMULARY DRUG (Lisinopril 2.5 MG) PO SCH (09:00)
[2017-07-20] MEDS: TRIAMTERENE/HCTZ 37.5 MG/25 MG CAP PO SCH (09:00)
[2017-07-20] MEDS ORDERED: ETOMIDATE 40 MG/20 ML VIAL IV PUSH ONE (09:00)
[2017-07-20] MEDS ORDERED: MIDAZOLAM HCL 2 MG/2 ML VIAL IV PUSH ONE (09:00)
[2017-07-20] MEDS ORDERED: [UNRECOGNIZED DRUG - OTHER] PO SCH (09:00)
--- NOTE | 2017-07-20 09:00 | HHI.CCPN ---
Subjective Remarks/Hospital Course 46 yo F with PMH of DM, hypertension, obesity, obstructive sleep apnea, cervical stenosis with myelopathy who has undergone C4/C5 and C6/C67 discectomy and disk prosthesis by Dr. Coffey. Discussed with Dr. Leach who received report that she had difficult airway due to poor neck mobility, intubated with Glidescope. Initially some hypoxia and bloody respiratory secretions during case but improved following lung recruitment. Received 3500 crystalloid, EBL 500, urine output 1 L. She received Decadron 8 mg IV in the OR. Subjective 07/20: Resting in bed in no acute distress. Arousable falls commands. Afebrile. Weaning off sedation with attempt extubated Objective Vital Signs Date Time Temp Pulse Resp B/P (MAP) Pulse Ox O2 Delivery O2 Flow Rate FiO2 07/20/17 08:00 100.4 115 18 121/72 (88) 100 07/20/17 07:57 40 07/20/17 07:00 Mechanical Ventilator Intake and Output 07/20/17 07/20/17 07/21/17 08:00 16:00 00:00 Intake Total 1069 ml Output Total 2245 ml Balance -1176 ml Result Diagram: 07/20/17 0408 07/20/17 0408 Other Results Microbiology Date/Time Source Procedure Growth Status 07/20/17 06:00 Blood Peripheral Aerobic Blood Culture Pending Received 07/20/17 06:00 Blood Peripheral Anaerobic Blood Culture Pending Received 07/20/17 06:31 Sputum Endotracheal Gram Stain Pending Received 07/20/17 06:31 Sputum Endotracheal Sputum Culture Pending Received Imaging Last Impressions Wrist X-Ray 07/19/17 0000 Signed Impressions: Service Date/Time: July 09:51 - CONCLUSION: Suspected old trauma to the hamate. No acute abnormality. Humberto Bose Jr., MD Hand X-Ray 07/19/17 0000 Signed Impressions: Service Date/Time: July 09:47 - CONCLUSION: Unremarkable examination of the right hand. Humberto Bose Jr., MD Chest X-Ray 07/19/17 0000 Signed Impressions: Service Date/Time: July 22:03 - CONCLUSION: 1. Intubation with endotracheal tube in satisfactory position. oTm Carter MD Cervical Spine X-Ray 07/19/17 0000 Signed Impressions: Service Date/Time: July 14:25 - CONCLUSION: 1. Fusion as above Tom Carter MD Objective Remarks GENERAL:46 yo female who orotracheally intubated and on mechanical ventilation laying in ISC bed. SKIN: Warm and dry, adequately perfused HEAD: Atraumatic. Normocephalic. EYES: Pupils equal and round, 2 mm and reactive bilaterally. No scleral icterus. No injection or drainage. ENT: No nasal bleeding or discharge. Mucous membranes pink and moist, drooling. NECK: Trachea midline. No JVD. Cervical collar in place. SANTOSH drain with serosanguineous output. Dressing in place anterior neck, clean/dry. CARDIOVASCULAR: Regular rate and rhythm. No murmurs rubs or gallops. RESPIRATORY: Clear to auscultation. Breath sounds equal bilaterally. GASTROINTESTINAL: Abdomen obese, soft, non-tender, nondistended. Bowel sounds present. MUSCULOSKELETAL: Extremities withoutedema. No obvious deformities. VASC: Left radial art line in place with distal perfusion intact. NEUROLOGICAL: Opens eyes to voice while on sedation. No obvious cranial nerve deficits. Follows commands by squeezing hands with normal hand senior java web developer bilaterally. Moves lower extremities to command. Urinary Catheter: Yes Assessment to: Continue Montoya insert reason: Prolonged Immobilization Vascular Central Line Catheter: No Assessment to: Continue A/P Assessment and Plan NEURO/PSYCH: Chronic neck pain secondary to cervical myelopathy Severe C6 7 herniated nucleus pulposus Mildly severe central to left C4/5 herniated nucleus pulposus Moderate C5/6 stenosis without definitive cord compression Postop day #1 C4/C5 and C6-C7 anterior cervical discectomy, resection sequestered herniated nucleus pulposis with spinal cord decompression, C4/5 and C6/7 with artificial disc placement (Mobi - C) Propofol currently at 50 mcg/kg per minute for sedation while intubated Goal of RASS -2 Daily sedation vacation Hydrocodone/acetaminophen 7.5/325 one tablet every 6 hours pain 3-5, 2 tablets pain 6-10. Patient is on hydrocodone/acetaminophen 5/325 one tablet every 6 hours when necessary at home Morphine 5 mill grams IV every 4 hours as needed for breakthrough pain. Continue gabapentin 300 mg by mouth 3 times a day Holding methocarbamol 500 mg by mouth 3 times a dayhome medication Holding cyclobenzaprine 5 mill grams by mouth 3 times a day/home medication Monitor SANTOSH output with management per neurosurgery. -[address] Coffey following. Rheumatoid factor negative. ESR 17 RESP: Obstructive sleep apnea Asthma Difficult airway due to limited neck mobility PRVC 14/450/0.8/8/40 Ventilator bundle Albuterol/ipratropium aerosols every 4 hours with albuterol aerosols every 2 hours. Dyspnea CPAP Trials later in the morning with plan to extubate. Per prior documented note, not using CPAP at home. Will encourage reevaluation post extubation. Decadron 8 mg IV given 07/19. Beverly scope, Meneses airway with EBUS tower/bronchoscopy at bedside for extubation CV: Essential hypertension Continue amlodipine 5 mg by mouth daily Continue lisinopril 2.5 milligrams by mouth daily Continue triamterene 37.5/hydrochlorothiazide 25 mg 1 tablet by mouth daily Labetalol as needed for systolic blood pressure greater than 170 Follow-up 2-D echo EKG on admission revealed normal sinus rhythm rate of 95. Normal VA, QRS and QT intervals. GI: OGT to LIWS Swallow evaluation when extubated Pantoprazole for GI prophylaxis Docusate sodium 100 mg twice a day for bowel regimen FEN/RENAL: Creatinine currently within normal limits Monitor urine output Accurate I's and O's Continue B12/folate 500 mcg/400 mcg 1 tablet once a day/home medication ID: Possible aspiration pneumonia versus community-acquired Preoperative cefazolin completed Currently on ampicillin/sulbactam 3 g IV every 6 hours Pertinent cultures 07/20 - blood cultures 2 - pending 07/20 - sputum - pending Saccharomyces boulardii 250 mg daily/home medication probiotics continued per neurosurgery HEME: Leukocytosis A.m. CBC. Monitor trends ENDO: Diabetes mellitus Hold metformin 500 mg by mouth twice a day/home medication Bedside glucose every 6 hours with low dose Novulog insulin sliding scale to maintain euglycemia MSK Old right hamate bone fracture Elevated BMI greater than 43 No surgical intervention for right hamate bone fracture. Weight loss encouraged Access - Utilize peripheral IV. Central line if indicated - Left radial arterial line placed 07/19 Prophylaxis - GI - pantoprazole 40 mill grams IV daily - DVT - SCD/pharmacological prophylaxis when okay with neurosurgery 15 additional minutes spent in care of this patient Rolando Corbin MD Jul 20, 2017 09:00
[2017-07-20] MEDS: DOCUSATE SODIUM 100 MG CAP PO SCH ×2 (10:27→19:26)
[2017-07-20] MEDS: amLODIPine BESYLATE 5 MG TAB PO SCH (10:27)
[2017-07-20] MEDS: GABAPENTIN 300 MG CAP PO SCH ×3 (10:27→17:32)
[2017-07-20] MEDS: LISINOPRIL 5 MG TAB PO SCH (10:27)
[2017-07-20] MEDS ORDERED: PHENOL 1.4% SOLN 180 ML BTL OROPHARYNG PRN (11:00)
[2017-07-20] MEDS ORDERED: 1/2 NS + KCL 20 MEQ INJ 1,000 ML IV SCH (12:00)
[2017-07-20] MEDS: INSULIN ASPART SUPPLEMENTAL SCALE SQ SCH ×3 (12:00→19:27)
[2017-07-20] MEDS: ACETAMINOPHEN/HYDROcodone 325 MG/7.5 MG TAB PO PRN ×2 (14:08→19:26)
[2017-07-20] MEDS: MORPHINE SULFATE 8 MG/ML INJ IV PUSH PRN (23:15)
[2017-07-21] VITALS (16 sets, daily range): BP systolic 120–139; BP diastolic 63–86; PULSE 98–121; RESP 12–24; TEMP 98.6–100.1; O2SAT 92–98
[2017-07-21] MEDS: ACETAMINOPHEN/HYDROcodone 325 MG/7.5 MG TAB PO PRN ×5 (01:44→20:34)
[2017-07-21] MEDS: MORPHINE SULFATE 8 MG/ML INJ IV PUSH PRN (04:48)
[2017-07-21] MEDS: RESP: ALBUTEROL 2.5 MG/IPRATROPIUM 0.5 MG NEB (SCH) NEB ×4 (05:20→20:45)
[2017-07-21] MEDS: AMPICILLIN-SULBACTAM INJ 3 GM in SODIUM CHLORIDE 0.9% INJ 100 ML IV SCH ×3 (06:01→17:28)
--- NOTE | 2017-07-21 06:07 | RADRPT ---
EXAM DATE/TIME: 07/21/2017 04:11 [place] COMPARISON: CHEST SINGLE AP, July 19, 2017, 22:03. INDICATIONS : Short of breath. MEDICAL HISTORY : Arthritis. SURGICAL HISTORY : Fusion, cervical. ENCOUNTER: Subsequent ACUITY: 2 days PAIN SCORE: Non-responsive. LOCATION: Bilateral chest FINDINGS: There is airspace process left lung base with diffuse posterior proximal lungs. ET tube has been martina wilder. There is a tubular structure overlapping the left lower leg may be IJ sheath. CONCLUSION: Left lung base airspace process not present previously and no change in pulmonary edema. Rivas Leal MD on July 21, 2017 at 6:04 Board Certified Radiologist. This report was verified electronically.
[2017-07-21] MEDS: CHLORHEXIDINE 0.12% (ORAL KIT) 15 ML CUP MT SCH ×2 (07:37→20:00)
[2017-07-21] MEDS: INSULIN ASPART SUPPLEMENTAL SCALE SQ SCH ×4 (08:00→21:00)
[2017-07-21] MEDS: PANTOPRAZOLE SODIUM 40 MG VIAL IVP SCH (08:28)
[2017-07-21] MEDS: amLODIPine BESYLATE 5 MG TAB PO SCH (08:28)
[2017-07-21] MEDS: TRIAMTERENE/HCTZ 37.5 MG/25 MG CAP PO SCH (08:28)
[2017-07-21] MEDS: DOCUSATE SODIUM 100 MG CAP PO SCH ×2 (08:28→20:32)
[2017-07-21] MEDS: GABAPENTIN 300 MG CAP PO SCH ×3 (08:28→17:27)
[2017-07-21] MEDS: LISINOPRIL 5 MG TAB PO SCH (08:28)
--- NOTE | 2017-07-21 09:17 | HHI.CCPN ---
Subjective Remarks/Hospital Course 46 yo F with PMH of DM, hypertension, obesity, obstructive sleep apnea, cervical stenosis with myelopathy who has undergone C4/C5 and C6/C67 discectomy and disk prosthesis by Dr. Coffey. Discussed with Dr. Leach who received report that she had difficult airway due to poor neck mobility, intubated with Glidescope. Initially some hypoxia and bloody respiratory secretions during case but improved following lung recruitment. Received 3500 crystalloid, EBL 500, urine output 1 L. She received Decadron 8 mg IV in the OR. 07/20: Resting in bed in no acute distress. Arousable falls commands. Afebrile. Weaning off sedation with attempt extubated Subjective 07/21: Low-grade temperatures. Currently out of bed to chair. Extubated yesterday without complication. Currently in 4 L nasal cannula. Denies complaints. Slowly tachycardic. Objective Vital Signs Date Time Temp Pulse Resp B/P (MAP) Pulse Ox O2 Delivery O2 Flow Rate FiO2 07/21/17 07:00 98 Nasal Cannula 4.00 07/21/17 06:00 121 20 125/78 (94) 07/21/17 04:00 100.1 07/20/17 09:45 40 Intake and Output 07/21/17 07/21/17 07/22/17 08:00 16:00 00:00 Intake Total 636 ml Output Total 400 ml Balance 236 ml Result Diagram: 07/20/17 0408 07/20/17 0408 Other Results Microbiology Date/Time Source Procedure Growth Status 07/20/17 06:00 Blood Peripheral Aerobic Blood Culture Pending Received 07/20/17 06:00 Blood Peripheral Anaerobic Blood Culture Pending Received 07/20/17 06:31 Sputum Endotracheal Gram Stain - Final Resulted 07/20/17 06:31 Sputum Endotracheal Sputum Culture Pending Resulted Imaging Last Impressions Chest X-Ray 07/21/17 0600 Signed Impressions: Service Date/Time: Friday, July 21, 2017 04:11 - CONCLUSION: Left lung base airspace process not present previously and no change in pulmonary edema. Rivas Leal MD Wrist X-Ray 07/19/17 0000 Signed Impressions: Service Date/Time: July 09:51 - CONCLUSION: Suspected old trauma to the hamate. No acute abnormality. Humberto Bose Jr., MD Hand X-Ray 07/19/17 0000 Signed Impressions: Service Date/Time: July 09:47 - CONCLUSION: Unremarkable examination of the right hand. Humberto Bose Jr., MD Cervical Spine X-Ray 07/19/17 0000 Signed Impressions: Service Date/Time: July 14:25 - CONCLUSION: 1. Fusion as above Tom Carter MD Objective Remarks GENERAL:46 yo female resting in chair on nasal cannula in no acute distress SKIN: Warm and dry, adequately perfused HEAD: Atraumatic. Normocephalic. EYES: Pupils equal and round, 2 mm and reactive bilaterally. No scleral icterus. No injection or drainage. ENT: No nasal bleeding or discharge. Mucous membranes pink and moist, drooling. NECK: Trachea midline. No JVD. Cervical collar in place. SANTOSH drain with serosanguineous output. Dressing in place anterior neck, clean/dry. CARDIOVASCULAR: Regular rate and rhythm. No murmurs rubs or gallops. RESPIRATORY: Image breath sounds left lower lobe. No wheezing GASTROINTESTINAL: Abdomen obese, soft, non-tender, nondistended. Bowel sounds present. MUSCULOSKELETAL: Extremities without significant peripheral edema. No obvious deformities. VASC: Left radial art line in place with distal perfusion intact. NEUROLOGICAL: Cranial nerves II through XII appear to be grossly intact. Strength is equal symmetric grossly bilaterally. Normal sensation. Urinary Catheter: Yes Assessment to: Continue Montoya insert reason: Prolonged Immobilization Vascular Central Line Catheter: No Assessment to: Continue A/P Assessment and Plan NEURO/PSYCH: Chronic neck pain secondary to cervical myelopathy Severe C6 7 herniated nucleus pulposus Mildly severe central to left C4/5 herniated nucleus pulposus Moderate C5/6 stenosis without definitive cord compression Postop day #2 C4/C5 and C6-C7 anterior cervical discectomy, resection sequestered herniated nucleus pulposis with spinal cord decompression, C4/5 and C6/7 with artificial disc placement (Mobi - C) Hydrocodone/acetaminophen 7.5/325 one tablet every 6 hours pain 3-5, 2 tablets pain 6-10. Patient is on hydrocodone/acetaminophen 5/325 one tablet every 6 hours when necessary at home Morphine 5 mill grams IV every 4 hours as needed for breakthrough pain. Continue gabapentin 300 mg by mouth 3 times a day Holding methocarbamol 500 mg by mouth 3 times a dayhome medication Holding cyclobenzaprine 5 mill grams by mouth 3 times a day/home medication Monitor SANTOSH output with management per neurosurgery. -[address] Coffey following. Rheumatoid factor negative. ESR 17 RESP: Obstructive sleep apnea Asthma Difficult airway due to limited neck mobility Nasal cannula to maintain saturations greater than equal to 92% Incentive spirometry while awake Chest x-ray 07/21 revealed left lung infiltrate. Possible small pleural effusion. Albuterol/ipratropium aerosols every 6 hours with albuterol aerosols every 2 hours. Dyspnea Per prior documented note, not using CPAP at home. Will encourage reevaluation post extubation. Decadron 8 mg IV given 07/19. CV: Essential hypertension Continue amlodipine 5 mg by mouth daily Continue lisinopril 2.5 milligrams by mouth daily Continue triamterene 37.5/hydrochlorothiazide 25 mg 1 tablet by mouth daily Labetalol as needed for systolic blood pressure greater than 170 Follow-up 2-D echo EKG on admission revealed normal sinus rhythm rate of 95. Normal NE, QRS and QT intervals. GI: And statin as tolerated Pantoprazole for GI prophylaxis Docusate sodium 100 mg twice a day for bowel regimen FEN/RENAL: Creatinine currently within normal limits Monitor urine output Accurate I's and O's Continue B12/folate 500 mcg/400 mcg 1 tablet once a day/home medication ID: Possible aspiration pneumonia versus community-acquired Preoperative cefazolin completed Currently on ampicillin/sulbactam 3 g IV every 6 hours Pertinent cultures 07/20 - blood cultures 2 - pending 07/20 - sputum -no organisms Saccharomyces boulardii 250 mg daily/home medication probiotics continued per neurosurgery HEME: Leukocytosis A.m. CBC. Monitor trends ENDO: Diabetes mellitus Hold metformin 500 mg by mouth twice a day/home medication Bedside glucose every 6 hours with low dose Novulog insulin sliding scale to maintain euglycemia MSK Old right hamate bone fracture Elevated BMI greater than 43 No surgical intervention for right hamate bone fracture. Weight loss encouraged Access - Utilize peripheral IV. Central line if indicated - Left radial arterial line placed 07/19 - 07/20 Prophylaxis - GI - pantoprazole 40 mill grams IV daily - DVT - SCD/pharmacological prophylaxis when okay with neurosurgery Level II follow-up Rolando Corbin MD Jul 21, 2017 09:17
--- NOTE | 2017-07-21 11:03 | HHI.NSPN ---
History Chief Complaint: Patient offers no complaints Interval History Patient is status post anterior cervical spine surgery. Reports that her pain is controlled. Denies any problems with arms or legs Exam Results Vital Signs Date Time Temp Pulse Resp B/P (MAP) Pulse Ox O2 Delivery O2 Flow Rate FiO2 07/21/17 10:00 115 07/21/17 09:18 97 Nasal Cannula 3.00 07/21/17 08:00 98.8 24 133/63 (86) 07/20/17 09:45 40 Intake and Output 07/21/17 07/21/17 07/22/17 08:00 16:00 00:00 Intake Total 636 ml Output Total 400 ml Balance 236 ml Physical Examination Patient is alert and awake. She is sitting up in a chair. She remains in a [place] J collar Moves all extremities well. Hand strength on the right somewhat limited due to pain Medical Decision Making Impression and Plan Doing well postop. Continues to improve Will need physical therapy for ambulation Should remain in the [place] J collar Willie Lawrence MD Jul 21, 2017 11:02
[2017-07-21 12:10] LABS: AUTOMATED NEUTROPHIL # 11.9 TH/MM3 (1.8-7.7); BASOPHIL # 0.1 TH/MM3 (0-0.2); BASOPHIL % 0.4 % (0.0-2.0); EOSINOPHIL # 0.1 TH/MM3 (0-0.4); EOSINOPHIL % 0.7 % (0.0-4.0); HEMATOCRIT 38.6 % (35.0-46.0); HEMOGLOBIN 12.8 GM/DL (11.6-15.3); LYMPHOCYTE # 1.8 TH/MM3 (1.0-4.8); MEAN CELL VOLUME 90.7 FL (80.0-100.0); MEAN CORPUSCULAR HGB CONC 33.1 % (32.0-36.0); MEAN PLATELET VOLUME 7.1 FL (7.0-11.0); MONO % 7.2 % (0.0-8.0); MONOCYTE # 1.1 TH/MM3 (0-0.9); NEUT % 79.7 % (16.0-70.0); PLATELET COUNT 312 TH/MM3 (150-450); RED BLOOD COUNT 4.26 MIL/MM3 (4.00-5.30); RED CELL DISTRIBUTION WIDTH 14.1 % (11.6-17.2); WHITE BLOOD COUNT 14.9 TH/MM3 (4.0-11.0)
[2017-07-21 12:53] LABS: BICARBONATE 27.1 MEQ/L (21.0-32.0); CALCIUM 8.4 MG/DL (8.5-10.1); CREATININE 0.58 MG/DL (0.50-1.00)
[2017-07-22] VITALS (8 sets, daily range): BP systolic 119–151; BP diastolic 75–93; PULSE 107–122; RESP 14–20; TEMP 97.8–99.1; O2SAT 93–99
[2017-07-22] MEDS: AMPICILLIN-SULBACTAM INJ 3 GM in SODIUM CHLORIDE 0.9% INJ 100 ML IV SCH ×4 (00:38→18:58)
[2017-07-22] MEDS: ACETAMINOPHEN/HYDROcodone 325 MG/7.5 MG TAB PO PRN ×4 (02:29→21:09)
[2017-07-22] MEDS: RESP: ALBUTEROL 2.5 MG/IPRATROPIUM 0.5 MG NEB (SCH) NEB ×4 (03:44→21:20)
--- NOTE | 2017-07-22 04:23 | RADRPT ---
EXAM DATE/TIME: 07/22/2017 02:42 [facility] COMPARISON: CHEST SINGLE AP, July 21, 2017, 4:11. INDICATIONS : Herniated Cervical Disc- Evaluate for pneumonia MEDICAL HISTORY : None. SURGICAL HISTORY : Fusion, cervical. ENCOUNTER: Subsequent ACUITY: 3 days PAIN SCORE: 7/10 LOCATION: Bilateral chest FINDINGS: A single view of the chest demonstrates subsegmental basilar airspace disease. No effusion. No pneumo thorax. There is some prominent soft tissue in the right paratracheal region. Cannot exclude adenopat hy.. CONCLUSION: 1. Subsegmental basilar airspace disease. Questionable mediastinal adenopathy. This would be better e valuated with chest CT. Tom Carter MD on July 22, 2017 at 4:19 Board Certified Radiologist. This report was verified electronically.
[2017-07-22 05:35] LABS: HEMATOCRIT 35.9 % (35.0-46.0); HEMOGLOBIN 11.9 GM/DL (11.6-15.3); MEAN CELL VOLUME 89.7 FL (80.0-100.0); MEAN CORPUSCULAR HEMOGLOBIN 29.8 PG (27.0-34.0); MEAN CORPUSCULAR HGB CONC 33.2 % (32.0-36.0); MEAN PLATELET VOLUME 7.2 FL (7.0-11.0); PLATELET COUNT 310 TH/MM3 (150-450); RED CELL DISTRIBUTION WIDTH 13.9 % (11.6-17.2); WHITE BLOOD COUNT 13.5 TH/MM3 (4.0-11.0)
[2017-07-22 06:02] LABS: BICARBONATE 30.5 MEQ/L (21.0-32.0); CALCIUM 8.6 MG/DL (8.5-10.1); CREATININE 0.6 MG/DL (0.50-1.00); MAGNESIUM 2.4 MG/DL (1.5-2.5); PHOSPHORUS 2.5 MG/DL (2.5-4.9)
[2017-07-22] MEDS: CHLORHEXIDINE 0.12% (ORAL KIT) 15 ML CUP MT SCH ×2 (08:00→20:00)
[2017-07-22] MEDS: INSULIN ASPART SUPPLEMENTAL SCALE SQ SCH ×4 (08:00→21:13)
[2017-07-22] MEDS: amLODIPine BESYLATE 5 MG TAB PO SCH (08:22)
[2017-07-22] MEDS: LISINOPRIL 5 MG TAB PO SCH (08:22)
[2017-07-22] MEDS: PANTOPRAZOLE SODIUM 40 MG VIAL IVP SCH (08:22)
[2017-07-22] MEDS: GABAPENTIN 300 MG CAP PO SCH ×3 (08:22→19:02)
[2017-07-22] MEDS: DOCUSATE SODIUM 100 MG CAP PO SCH ×2 (08:23→21:08)
[2017-07-22] MEDS: TRIAMTERENE/HCTZ 37.5 MG/25 MG CAP PO SCH (08:23)
[2017-07-22] MEDS ORDERED: PNEUMOCOCCAL POLYVALENT INJ 25 MCG/0.5 ML SYR IM ONE (10:00)
--- NOTE | 2017-07-22 12:59 | HHI.NSPN ---
History Chief Complaint: Patient offers no complaints Interval History Patient is status post anterior cervical spine surgery. Reports that her pain is controlled. Denies any problems with arms or legs Exam Results Vital Signs Date Time Temp Pulse Resp B/P (MAP) Pulse Ox O2 Delivery O2 Flow Rate FiO2 07/22/17 12:00 98.0 110 18 130/85 (100) 96 07/21/17 20:45 Nasal Cannula 4.00 07/20/17 09:45 40 Intake and Output 07/22/17 07/22/17 07/23/17 08:00 16:00 00:00 Intake Total 420 ml Output Total 20 ml Balance 400 ml Physical Examination Patient is alert and awake. She is sitting up in a chair. She remains in a [place] J collar Moves all extremities well. Hand strength improved. Affect much improved Medical Decision Making Impression and Plan Doing well postop. Continues to improve Will need physical therapy for ambulation Should remain in the [place] J collar Will remove drain Willie Lawrence MD Jul 22, 2017 12:58
[2017-07-23] VITALS (9 sets, daily range): BP systolic 117–144; BP diastolic 67–87; PULSE 107–118; RESP 17–20; TEMP 97.8–99.3; O2SAT 92–100
[2017-07-23] MEDS: AMPICILLIN-SULBACTAM INJ 3 GM in SODIUM CHLORIDE 0.9% INJ 100 ML IV SCH ×3 (00:33→12:11)
[2017-07-23] MEDS: RESP: ALBUTEROL 2.5 MG/IPRATROPIUM 0.5 MG NEB (SCH) NEB ×4 (02:57→20:43)
[2017-07-23] MEDS: ACETAMINOPHEN/HYDROcodone 325 MG/7.5 MG TAB PO PRN ×4 (03:23→23:24)
[2017-07-23] MEDS: INSULIN ASPART SUPPLEMENTAL SCALE SQ SCH ×4 (08:49→21:00)
[2017-07-23] MEDS: CHLORHEXIDINE 0.12% (ORAL KIT) 15 ML CUP MT SCH ×2 (08:49→20:00)
[2017-07-23] MEDS: LISINOPRIL 5 MG TAB PO SCH (08:49)
[2017-07-23] MEDS: DOCUSATE SODIUM 100 MG CAP PO SCH ×2 (08:50→23:24)
[2017-07-23] MEDS: amLODIPine BESYLATE 5 MG TAB PO SCH (08:50)
[2017-07-23] MEDS: TRIAMTERENE/HCTZ 37.5 MG/25 MG CAP PO SCH (08:50)
[2017-07-23] MEDS: GABAPENTIN 300 MG CAP PO SCH ×3 (08:50→17:05)
[2017-07-23] MEDS: PANTOPRAZOLE SODIUM 40 MG VIAL IVP SCH (08:51)
--- NOTE | 2017-07-23 11:25 | HHI.NSPN ---
History Chief Complaint: Knee aches. Interval History 07/19: The patient presented to [facility] to undergo a C4-5 and C6-7 anterior cervical discectomy with placement of a Mobi-C device following resection of a sequestered herniated nucleus pulposis for spinal cord decompression. Post-operatively the patient was transferred to the ISC unit for further care and monitoring due to her not being able to be extubated. 07/20: When seen this morning the patient is intubated and mechanically ventilated. She was on propofol which was held when seen. She did open her eyes to voice and followed commands with all extremities. The bronchoscopy cart is outside the room. 07/21: Patient is status post anterior cervical spine surgery. Reports that her pain is controlled. Denies any problems with arms or legs 07/23: The patient is awake and alert sitting up in bed when seen ordering her lunch. She complains of aching to the right knee, otherwise she has no pain, numbness, tingling or weakness to the extremities. She denies any pain to the midline cervical spine or anterior neck surgical incision. Sensation is intact as is motor strength except for weak hand intrinsics and extrinsics. She states that she would like to go home with Home Health for further therapy. She remains tachycardiac since admission. A review of the medical record from the office shows that the patient had a heart rate of 85 BPM when seen before surgery. Her pre-operative EKG also had a heart rate of 85 BPM. The patient does state that she will occasionally wake up because of palpitations. Exam Results 07/21/17 07/21/17 07/22/17 07/22/17 07/23/17 07/23/17 06:00 18:00 06:00 18:00 06:00 18:00 Intake Total 536 ml 836 ml 420 ml 820 ml 660 ml 100 ml Output Total 350 ml 1720 ml 20 ml Balance 186 ml -884 ml 400 ml 820 ml 660 ml 100 ml Intake Oral 100 ml 300 ml 420 ml 720 ml 560 ml IV Total 436 ml 536 ml 100 ml 100 ml 100 ml Output Urine Total 350 ml 1700 ml Stool Total 0 ml Emesis 0 ml 0 ml Drainage Total 20 ml 20 ml # Voids 4 2 1 # Bowel Movements 0 0 0 Vital Signs Date Time Temp Pulse Resp B/P (MAP) Pulse Ox O2 Delivery O2 Flow Rate FiO2 07/23/17 09:16 93 Nasal Cannula 1.00 07/23/17 09:14 96 Nasal Cannula 1.00 07/23/17 07:20 99.1 110 18 142/87 (105) 92 07/23/17 04:00 98.3 107 20 144/80 (101) 100 07/23/17 02:58 97 Nasal Cannula 1.00 07/23/17 00:00 Nasal Cannula 1.00 07/23/17 00:00 99.3 117 20 117/67 (84) 97 07/22/17 20:00 99.1 114 20 119/78 (92) 99 07/22/17 16:00 97.8 122 19 143/76 (98) 93 07/22/17 15:38 95 Nasal Cannula 1.00 07/22/17 13:11 96 Nasal Cannula 4.00 07/22/17 12:57 93 07/22/17 12:00 98.0 110 18 130/85 (100) 96 07/22/17 08:00 98.6 109 19 151/93 (112) 99 07/22/17 04:00 119 07/22/17 04:00 98.2 112 15 135/75 (95) 95 07/22/17 03:29 14 07/22/17 00:00 98.2 107 14 131/80 (97) 99 07/22/17 00:00 107 07/21/17 21:34 16 07/21/17 20:45 96 Nasal Cannula 4.00 07/21/17 20:00 112 07/21/17 20:00 98.7 120 24 130/71 (90) 92 07/21/17 19:00 96 Nasal Cannula 4.00 07/21/17 16:00 104 07/21/17 16:00 98.6 104 12 123/82 (96) 98 07/21/17 14:00 108 07/21/17 12:00 110 07/21/17 12:00 98.6 108 14 120/64 (82) 98 07/21/17 10:00 115 07/21/17 09:18 97 Nasal Cannula 3.00 07/21/17 08:00 108 07/21/17 08:00 98.8 98 24 133/63 (86) 98 07/21/17 07:00 98 Nasal Cannula 4.00 07/21/17 06:00 121 20 125/78 (94) 95 07/21/17 06:00 121 07/21/17 05:45 98 Nasal Cannula 3.00 07/21/17 05:00 114 20 123/77 (92) 95 07/21/17 05:00 114 07/21/17 04:53 20 07/21/17 04:00 100.1 121 20 120/69 (86) 94 07/21/17 04:00 121 07/21/17 03:00 118 20 134/79 (97) 94 07/21/17 03:00 118 07/21/17 02:00 112 20 139/86 (103) 95 07/21/17 02:00 112 07/21/17 01:00 112 07/21/17 01:00 112 20 133/84 (100) 96 07/21/17 00:00 99.5 114 20 128/81 (97) 96 07/21/17 00:00 117 07/20/17 23:00 115 07/20/17 23:00 115 20 121/74 (90) 97 07/20/17 22:00 110 07/20/17 22:00 110 20 117/71 (86) 96 07/20/17 21:00 116 07/20/17 21:00 116 20 132/80 (97) 93 07/20/17 20:00 116 20 144/82 (102) 97 07/20/17 20:00 116 07/20/17 19:00 121 07/20/17 19:00 97 Nasal Cannula 2.00 07/20/17 19:00 99.8 120 20 142/84 (103) 97 07/20/17 18:00 116 07/20/17 16:00 111 07/20/17 16:00 98.5 111 24 114/72 (86) 97 07/20/17 14:00 112 07/20/17 12:00 99.3 122 29 129/84 (99) 98 07/20/17 12:00 122 Physical Examination GENERAL: Awake & alert sitting up in bed on the phone ordering lunch. Affect essentially normal. Readily interacts. No apparent distress. HEENT: Normocephalic, atraumatic. NECK: [place] J cervical collar in place. Midline cervical spine appears to be NTTP. Left anterior neck surgical incision w/intact dressing w/o any shadowing. No JVD. Trachea midline. MUSCULOSKELETAL: RESTREPO w/o difficulty. Extremities NTTP. NEUROLOGICAL: AAOx3. Speech clear & appropriate. Follows commands w/o difficulty. Sensation intact to light touch to all extremities. Motor strength hand intrinsics are 4/5 on the right & 4+/5 on the left, o/w 5/5 to all major flexion & extension muscle groups to the extremities to include the wrist flexors & extensors. No Elzbieta's bilaterally. No ankle clonus bilaterally. Neutral plantar response bilaterally. Gait steady. Lab, Micro, Other Results Recent Impressions Chest X-Ray 07/22/17 06 Signed Impressions: Service Date/Time: Saturday, July 22, 2017 02:42 - CONCLUSION: 1. Subsegmental basilar airspace disease. Questionable mediastinal adenopathy. This would be better evaluated with chest CT. Tom Carter MD Chest X-Ray 07/21/17599 Signed Impressions: Service Date/Time: Friday, July 21, 2017 04:11 - CONCLUSION: Left lung base airspace process not present previously and no change in pulmonary edema. Rivas Leal MD Laboratory Tests Test 07/21/17 11:15 07/22/17 04:21 White Blood Count 14.9 TH/MM3 13.5 TH/MM3 Red Blood Count 4.26 MIL/MM3 4.00 MIL/MM3 Hemoglobin 12.8 GM/DL 11.9 GM/DL Hematocrit 38.6 % 35.9 % Mean Corpuscular Volume 90.7 FL 89.7 FL Mean Corpuscular Hemoglobin 30.0 PG 29.8 PG Mean Corpuscular Hemoglobin Concent 33.1 % 33.2 % Red Cell Distribution Width 14.1 % 13.9 % Platelet Count 312 TH/MM3 310 TH/MM3 Mean Platelet Volume 7.1 FL 7.2 FL Neutrophils (%) (Auto) 79.7 % Lymphocytes (%) (Auto) 12.0 % Monocytes (%) (Auto) 7.2 % Eosinophils (%) (Auto) 0.7 % Basophils (%) (Auto) 0.4 % Neutrophils # (Auto) 11.9 TH/MM3 Lymphocytes # (Auto) 1.8 TH/MM3 Monocytes # (Auto) 1.1 TH/MM3 Eosinophils # (Auto) 0.1 TH/MM3 Basophils # (Auto) 0.1 TH/MM3 CBC Comment DIFF FINAL Differential Comment Blood Urea Nitrogen 8 MG/DL 10 MG/DL Creatinine 0.58 MG/DL 0.60 MG/DL Random Glucose 119 MG/DL 113 MG/DL Calcium Level 8.4 MG/DL 8.6 MG/DL Sodium Level 139 MEQ/L 138 MEQ/L Potassium Level 3.9 MEQ/L 3.4 MEQ/L Chloride Level 105 MEQ/L 100 MEQ/L Carbon Dioxide Level 27.1 MEQ/L 30.5 MEQ/L Anion Gap 7 MEQ/L 8 MEQ/L Estimat Glomerular Filtration Rate 135 ML/MIN 130 ML/MIN Phosphorus Level 2.5 MG/DL Magnesium Level 2.4 MG/DL Medical Decision Making Impression and Plan Impression: (1) HNP (herniated nucleus pulposus), cervical (2) Cervical disc disease with myelopathy 1. C4 5 and C6 7 herniated nucleus pulposus, possible C4 5 osteophytic disc complex 2. Cervical stenosis with myelopathy The patient is doing well w/intact sensation & motor strength. Tachycardia. Afebrile. Normotensive. Sputum culture () with heavy growth of normal respiratory jose to date but preliminary. Blood cultures x2 w/no growth x3 days. Physical Therapy recommends Home Health for further therapy as well as a BSC and wheeled walker. POD # 4 () s/p: 1. C4 5 and C6 7 anterior cervical discectomy, resection sequestered herniated nucleus pulposis or spinal cord decompression 2. C4 5 and C6 7 artificial disc placement (Mobi-C) Plan: Neuro checks. Stat CT brain for any decline in neuro status. [place] J cervical collar. Hold pharmacologic DVT prophylaxis. Mechanical DVT prophylaxis. Stress ulcer prophylaxis. ADDENDUM at 1252: Nursing reports that Microbiology called and reported that the sputum culture did come back with MRSA. Will place Infectious Disease consult. Greg Wolff Jul 23, 2017 11:25
[2017-07-23] MEDS ORDERED: GLYCERIN ADULT 2 GM SUPP RECTAL PRN (12:30)
[2017-07-23] MEDS: MAGNESIUM HYDROXIDE SUSP 30 ML CUP PO PRN (14:30)
[2017-07-23] MEDS: POLYETHYLENE GLYCOL 17 GM PKG PO SCH (14:30)
--- NOTE | 2017-07-23 14:48 | ECHRPT ---
Indication: SOB CONCLUSIONS Technically difficult study. Normal left ventricular size and wall thickness. The left ventricular systolic function is normal with an estimated ejection fraction in the range of 60-65%. Regional wall motio n abnormalities cannot be excluded on the basis of this study. The mitral valve is not well visualized. Flattening of the mitral leaflets with no definitive prola pse. No mitral valve stenosis or regurgitation. BP: 164 / 80 HR: 107 Rhythm: MEASUREMENTS (Male / Female) Normal Values Technical Quality:Good 2D ECHO LV Diastolic Diameter PLAX 4.2 cm 4.2 - 5.9 / 3.9 - 5.3 cm LV Systolic Diameter PLAX 3.5 cm IVS Diastolic Thickness 1.7 cm 0.6 - 1.0 / 0.6 - 0.9 cm LVPW Diastolic Thickness 1.3 cm 0.6 - 1.0 / 0.6 - 0.9 cm LV Relative Wall Thickness 0.7 LA Systolic Diameter LX 2.9 cm 3.0 - 4.0 / 2.7 - 3.8 cm DOPPLER Mitral E Point Velocity 76.0 cm/s Mitral A Point Velocity 83.9 cm/s Mitral E to A Ratio 0.9 TR Peak Velocity 190.0 cm/s TR Peak Gradient 14.4 mmHg FINDINGS LEFT VENTRICLE Normal left ventricular size and wall thickness. The left ventricular systolic function is normal wi th an estimated ejection fraction in the range of 60-65%. Regional wall motion abnormalities cannot be e xcluded on the basis of this study. RIGHT VENTRICLE Normal right ventricular size and systolic function. LEFT ATRIUM The left atrial size is normal. RIGHT ATRIUM The right atrial size is normal. ATRIAL SEPTUM Normal atrial septal thickness without atrial level shunting by limited color doppler interrogation. AORTA The aortic root and proximal ascending aorta are normal in size on limited imaging. MITRAL VALVE The mitral valve is not well visualized. Flattening of the mitral leaflets with no definitive prola pse. No mitral valve stenosis or regurgitation. AORTIC VALVE Trileaflet aortic valve. No aortic valve stenosis or regurgitation. TRICUSPID VALVE Structurally normal tricuspid valve. No tricuspid valve stenosis or regurgitation. PULMONARY VALVE The pulmonary valve is not well visualized. VESSELS The inferior vena cava is normal in size. PERICARDIUM No pericardial effusion. David Crystal MD (Electronically Signed) Final Date:23 July 2017 14:47
--- NOTE | 2017-07-23 21:00 | MB ---
cc: LOWELL PLUNKETT MD DATE OF CONSULTATION 07/23/[address] Coffey. REASON FOR CONSULTATION MRSA pneumonia. HISTORY OF PRESENT ILLNESS This is a 49-year-old black female who has history of recent cervical spine surgery. The patient was noted to have cervical stenosis with myelopathy and she underwent C4-C5 and C6-C7 diskectomy by Dr. Coffey. The patient had to be intubated after the surgery because of difficulty with airway. She was extubated the following day. The patient had elevated temperature up to 101 degrees after surgery and sputum culture was taken and it came back with MRSA. Chest x-ray showed left lung base airspace process which was not previously seen. This chest x-ray was on July 21. The patient was receiving IV antibiotic in the form of Unasyn. The white blood cell count climbed up from 9.9 on 07/19 to 14.9 on 07/20 and has remained elevated. This consultation is requested for antibiotic treatment for the MRSA. The patient is currently not producing sputum. She denies chest pain or shortness of breath. She is wearing a neck collar. PAST MEDICAL HISTORY 1. MRSA infection of the elbow in 2013. 2. Chronic neck pain. 3. Sleep apnea. 4. History of laparoscopic cholecystectomy. 5. Hysterectomy. 6. Diabetes. 7. Hypertension. 8. Asthma. ALLERGIES NO KNOWN DRUG ALLERGIES. MEDICATIONS 1. Insulin. 2. Norvasc. 3. Neurontin. 4. Dyazide. 5. Lisinopril. 6. Colace. 7. Protonix. 8. DuoNeb. 9. Ampicillin / Sulbactam. 10. [place] 7.5. SOCIAL HISTORY No tobacco, no alcohol. No illicit drugs. FAMILY HISTORY Noncontributory. REVIEW OF SYSTEMS Negative on 10-point review. PHYSICAL EXAMINATION GENERAL: This is a well-developed moderately obese female who is in no acute distress. She is awake and alert and oriented. Currently sitting in a chair. VITAL SIGNS: Include temperature 99.2, BP 137/70, respirations 18, heart rate 118. HEENT: Head is atraumatic. Extraocular movements grossly intact, pupils reactive to light. No icterus. Oropharynx moist mucosa without lesions. NECK: Supple without adenopathy. LUNGS: Have rhonchi at the bases. HEART: Regular S1-S2. No murmurs, rubs or gallops. ABDOMEN: Bowel sounds present, soft, no tenderness appreciated. RECTAL: Not performed. EXTREMITIES: No clubbing or cyanosis or edema. SKIN: No rash. NEUROLOGIC: No gross focal findings. PSYCHIATRIC: The patient is calm and cooperative. LABORATORY DATA WBC 13.5, platelets 310, hemoglobin 11.9. Creatinine 0.60, BUN 10, sodium 138. IMPRESSION 1. MRSA pneumonia. 2. Leukocytosis. 3. Status post cervical diskectomy. RECOMMENDATIONS 1. Discontinue piperacillin / sulbactam. 2. Begin Zyvox for MRSA. 3. Monitor clinical status and monitor white blood cell count. 4. I would give the patient tentatively seven day course of antibiotics but follow her course and follow her response. I will follow her progress. Lowell Plunkett MD FD/PHYLLIS /4:16 PM /8:34 PM
[2017-07-23] MEDS: LINEZOLID 600 MG TAB PO SCH (23:24)
[2017-07-24] VITALS (7 sets, daily range): BP systolic 128–154; BP diastolic 77–92; PULSE 86–116; RESP 18–20; TEMP 97.9–98.8; O2SAT 92–97
[2017-07-24] MEDS: RESP: ALBUTEROL 2.5 MG/IPRATROPIUM 0.5 MG NEB (SCH) NEB (02:32)
[2017-07-24] MEDS: ACETAMINOPHEN/HYDROcodone 325 MG/7.5 MG TAB PO PRN ×3 (05:44→19:26)
[2017-07-24] MEDS: LISINOPRIL 5 MG TAB PO SCH (08:22)
[2017-07-24] MEDS: DOCUSATE SODIUM 100 MG CAP PO SCH ×2 (08:22→21:07)
[2017-07-24] MEDS: amLODIPine BESYLATE 5 MG TAB PO SCH (08:22)
[2017-07-24] MEDS: GABAPENTIN 300 MG CAP PO SCH ×3 (08:22→17:14)
[2017-07-24] MEDS: POLYETHYLENE GLYCOL 17 GM PKG PO SCH (08:23)
[2017-07-24] MEDS: INSULIN ASPART SUPPLEMENTAL SCALE SQ SCH ×4 (08:23→21:00)
[2017-07-24] MEDS: CHLORHEXIDINE 0.12% (ORAL KIT) 15 ML CUP MT SCH ×2 (08:23→20:00)
[2017-07-24] MEDS: LINEZOLID 600 MG TAB PO SCH ×2 (08:23→21:07)
[2017-07-24] MEDS: PANTOPRAZOLE SODIUM 40 MG VIAL IVP SCH (08:23)
[2017-07-24] MEDS: TRIAMTERENE/HCTZ 37.5 MG/25 MG CAP PO SCH (08:23)
--- NOTE | 2017-07-24 10:59 | HHI.NSPN ---
(Greg Frazier Hyun TAY) History Chief Complaint: Midline neck pain. (Greg Frazier Hyun TAY) Interval History 07/19: The patient presented to [facility] to undergo a C4-5 and C6-7 anterior cervical discectomy with placement of a Mobi-C device following resection of a sequestered herniated nucleus pulposis for spinal cord decompression. Post-operatively the patient was transferred to the ISC unit for further care and monitoring due to her not being able to be extubated. 07/20: When seen this morning the patient is intubated and mechanically ventilated. She was on propofol which was held when seen. She did open her eyes to voice and followed commands with all extremities. The bronchoscopy cart is outside the room. 07/21: Patient is status post anterior cervical spine surgery. Reports that her pain is controlled. Denies any problems with arms or legs 07/23: The patient is awake and alert sitting up in bed when seen ordering her lunch. She complains of aching to the right knee, otherwise she has no pain, numbness, tingling or weakness to the extremities. She denies any pain to the midline cervical spine or anterior neck surgical incision. Sensation is intact as is motor strength except for weak hand intrinsics and extrinsics. She states that she would like to go home with Home Health for further therapy. She remains tachycardiac since admission. A review of the medical record from the office shows that the patient had a heart rate of 85 BPM when seen before surgery. Her pre-operative EKG also had a heart rate of 85 BPM. The patient does state that she will occasionally wake up because of palpitations. 07/24: This morning the patient is asleep in bed when seen. She opens her eyes to voice and is awake after that. She complains of midline cervical spine pain. She denies any pain, numbness, tingling or weakness to the extremities. She also complains of constipation. The patient reported that she has had the docusate and Miralax this morning but still hasn't had a bowel movement. It was discussed with her that she did have milk of magnesia and a glycerin suppository ordered as needed but she would have to ask for either of those. She verbalised her understanding. Her heart rate is noted to be under 100 this morning. Her neuro exam is stable. Infectious Disease evaluated the patient yesterday afternoon and recommended a seven day course of antibiotics for the MRSA infection. (Greg Frazier) Exam Results 07/22/17 07/22/17 07/23/17 07/23/17 07/24/17 07/24/17 06:00 18:00 06:00 18:00 06:00 18:00 Intake Total 420 ml 820 ml 660 ml 200 ml Output Total 20 ml Balance 400 ml 820 ml 660 ml 200 ml Intake Oral 420 ml 720 ml 560 ml IV Total 100 ml 100 ml 200 ml Stool Total 0 ml Drainage Total 20 ml # Voids 4 2 1 1 1 1 # Bowel Movements 0 Vital Signs Date Time Temp Pulse Resp B/P (MAP) Pulse Ox O2 Delivery O2 Flow Rate FiO2 07/24/17 08:41 Room Air 07/24/17 07:58 97.9 86 18 137/77 (97) 93 07/24/17 04:00 98.0 106 20 128/83 (98) 93 07/24/17 02:11 98.4 105 18 133/82 (99) 97 07/23/17 20:44 96 Nasal Cannula 1.00 07/23/17 19:40 97.8 118 17 118/73 (88) 96 07/23/17 19:00 Nasal Cannula 1.00 50 07/23/17 16:00 98.6 115 18 134/82 (99) 93 07/23/17 12:00 99.2 118 18 137/70 (92) 94 07/23/17 09:16 93 Nasal Cannula 1.00 07/23/17 09:14 96 Nasal Cannula 1.00 07/23/17 07:20 99.1 110 18 142/87 (105) 92 07/23/17 04:00 98.3 107 20 144/80 (101) 100 07/23/17 02:58 97 Nasal Cannula 1.00 07/23/17 00:00 Nasal Cannula 1.00 07/23/17 00:00 99.3 117 20 117/67 (84) 97 07/22/17 20:00 99.1 114 20 119/78 (92) 99 07/22/17 16:00 97.8 122 19 143/76 (98) 93 07/22/17 15:38 95 Nasal Cannula 1.00 07/22/17 13:11 96 Nasal Cannula 4.00 07/22/17 12:57 93 07/22/17 12:00 98.0 110 18 130/85 (100) 96 07/22/17 08:00 98.6 109 19 151/93 (112) 99 07/22/17 04:00 119 07/22/17 04:00 98.2 112 15 135/75 (95) 95 07/22/17 03:29 14 07/22/17 00:00 98.2 107 14 131/80 (97) 99 07/22/17 00:00 107 07/21/17 21:34 16 07/21/17 20:45 96 Nasal Cannula 4.00 07/21/17 20:00 112 07/21/17 20:00 98.7 120 24 130/71 (90) 92 07/21/17 19:00 96 Nasal Cannula 4.00 07/21/17 16:00 104 07/21/17 16:00 98.6 104 12 123/82 (96) 98 07/21/17 14:00 108 07/21/17 12:00 110 07/21/17 12:00 98.6 108 14 120/64 (82) 98 (Greg Frazier) Physical Examination GENERAL: Asleep sitting up in bed. Awakens to voice and alert after that. Affect essentially normal. Readily interacts. No apparent distress. HEENT: Normocephalic, atraumatic. NECK: Craig J cervical collar in place. Midline cervical spine mildly TTP at the thoracolumbar spine. Left anterior neck surgical incision NTTP w/intact dressing w/o any shadowing. No JVD. Trachea midline. MUSCULOSKELETAL: RESTREPO w/o difficulty. Extremities NTTP. NEUROLOGICAL: AAOx3. Speech clear & appropriate. Follows commands w/o difficulty. Sensation intact to light touch to all extremities. Motor strength: hand intrinsics are 4/5 on the right & 4+/5 on the left, o/w 5/ 5 to all major flexion & extension muscle groups to the extremities to include the wrist flexors & extensors. (Greg Frazier) Lab, Micro, Other Results Recent Impressions Chest X-Ray 07/22/17 0600 Signed Impressions: Service Date/Time: Saturday, July 22, 2017 02:42 - CONCLUSION: 1. Subsegmental basilar airspace disease. Questionable mediastinal adenopathy. This would be better evaluated with chest CT. Tom Carter MD Laboratory Tests Test 07/21/17 11:15 07/22/17 04:21 White Blood Count 14.9 TH/MM3 13.5 TH/MM3 Red Blood Count 4.26 MIL/MM3 4.00 MIL/MM3 Hemoglobin 12.8 GM/DL 11.9 GM/DL Hematocrit 38.6 % 35.9 % Mean Corpuscular Volume 90.7 FL 89.7 FL Mean Corpuscular Hemoglobin 30.0 PG 29.8 PG Mean Corpuscular Hemoglobin Concent 33.1 % 33.2 % Red Cell Distribution Width 14.1 % 13.9 % Platelet Count 312 TH/MM3 310 TH/MM3 Mean Platelet Volume 7.1 FL 7.2 FL Neutrophils (%) (Auto) 79.7 % Lymphocytes (%) (Auto) 12.0 % Monocytes (%) (Auto) 7.2 % Eosinophils (%) (Auto) 0.7 % Basophils (%) (Auto) 0.4 % Neutrophils # (Auto) 11.9 TH/MM3 Lymphocytes # (Auto) 1.8 TH/MM3 Monocytes # (Auto) 1.1 TH/MM3 Eosinophils # (Auto) 0.1 TH/MM3 Basophils # (Auto) 0.1 TH/MM3 CBC Comment DIFF FINAL Differential Comment Blood Urea Nitrogen 8 MG/DL 10 MG/DL Creatinine 0.58 MG/DL 0.60 MG/DL Random Glucose 119 MG/DL 113 MG/DL Calcium Level 8.4 MG/DL 8.6 MG/DL Sodium Level 139 MEQ/L 138 MEQ/L Potassium Level 3.9 MEQ/L 3.4 MEQ/L Chloride Level 105 MEQ/L 100 MEQ/L Carbon Dioxide Level 27.1 MEQ/L 30.5 MEQ/L Anion Gap 7 MEQ/L 8 MEQ/L Estimat Glomerular Filtration Rate 135 ML/MIN 130 ML/MIN Phosphorus Level 2.5 MG/DL Magnesium Level 2.4 MG/DL (Greg Frazier) Medical Decision Making Impression and Plan Impression: (1) HNP (herniated nucleus pulposus), cervical (2) Cervical disc disease with myelopathy 1. C4 5 and C6 7 herniated nucleus pulposus, possible C4 5 osteophytic disc complex 2. Cervical stenosis with myelopathy The patient continues to do well w/intact sensation & motor strength. Tachycardia resolved. Afebrile. Sputum culture () with MRSA. Blood cultures x2 w/no growth x3 days. Physical Therapy recommends Home Health for further therapy as well as a BSC and wheeled walker. POD #5 () s/p: 1. C4 5 and C6 7 anterior cervical discectomy, resection sequestered herniated nucleus pulposis or spinal cord decompression 2. C4 5 and C6 7 artificial disc placement (Mobi-C) Plan: Neuro checks. Stat CT brain for any decline in neuro status. Craig J cervical collar. Hold pharmacologic DVT prophylaxis. Mechanical DVT prophylaxis. Stress ulcer prophylaxis Antibiotics per Infectious Disease. Will follow heart rate today. If increases will do EKG and consult Hospitalist. May shower below the neck w/assistance. (Greg Frazier) Attending Statement The exam, history, and the medical decision-making described in the above note were completed with the assistance of the mid-level provider. I reviewed and agree with the findings presented. I attest that I had a [id number] encounter with the patient on the same day, and personally performed and documented my assessment and findings in the medical record. (Deepak Beth MD) Greg Frazier Jul 24, 2017 10:59 Deepak Beth MD Jul 27, 2017 15:51
[2017-07-25] VITALS (9 sets, daily range): BP systolic 136–148; BP diastolic 73–95; PULSE 95–117; RESP 18–20; TEMP 97.5–99; O2SAT 94–100
[2017-07-25] MEDS: MAGNESIUM HYDROXIDE SUSP 30 ML CUP PO PRN (03:03)
[2017-07-25] MEDS: ACETAMINOPHEN/HYDROcodone 325 MG/7.5 MG TAB PO PRN ×4 (03:08→21:02)
[2017-07-25] MEDS: INSULIN ASPART SUPPLEMENTAL SCALE SQ SCH ×4 (08:00→21:00)
[2017-07-25] MEDS: CHLORHEXIDINE 0.12% (ORAL KIT) 15 ML CUP MT SCH ×2 (08:00→20:00)
[2017-07-25] MEDS: GABAPENTIN 300 MG CAP PO SCH ×3 (08:46→16:05)
[2017-07-25] MEDS: LISINOPRIL 5 MG TAB PO SCH (08:46)
[2017-07-25] MEDS: TRIAMTERENE/HCTZ 37.5 MG/25 MG CAP PO SCH (08:46)
[2017-07-25] MEDS: DOCUSATE SODIUM 100 MG CAP PO SCH ×2 (08:46→21:01)
[2017-07-25] MEDS: LINEZOLID 600 MG TAB PO SCH ×2 (08:46→21:01)
[2017-07-25] MEDS: amLODIPine BESYLATE 5 MG TAB PO SCH (08:46)
[2017-07-25] MEDS: PANTOPRAZOLE SODIUM 40 MG VIAL IVP SCH (08:47)
[2017-07-25] MEDS: POLYETHYLENE GLYCOL 17 GM PKG PO SCH (08:47)
--- NOTE | 2017-07-25 10:39 | PD.CONS ---
HPI Service [facility] Hospitalists Consult Requested By Primary Care Physician Priyanka Potter MD Diagnoses: History of Present Illness Patient is 46 yo woman presented with cervical stenosis/cervical myelopathy. Complained of neck pain and progressive upper extremity weakness and muscle spasms. She had herniated nucleus pulposis of c4/5/6/7 and possible disc osteophyte at c4/5. On 07/19 patient underwent a C4/5, C6/7 anterior cervical discectomy, resection of sequestered herniated nucleus pulposis and spinal cord decompression. Also C4/5, C6/7 artificial disc placement (Mobi-C)...Findings included Large sequestered disc herniation extending through her annular tear at the left paramedian C4 5 level and central C6-7 level. The patient had difficult intubation and felt to have aspiration pneumonia. Later endotracheal cx's grew mrsa and cxr showed bilateral infiltrates. She was seen by ID and started on antibiotics. Medicine is consulted for persistent tachycardia. Pt says she has had intermittent chest palpitations for months leading up to this hospitalization. no cp or sob. no dizziness or syncope. Denies hx arrhythmias. Admits to neck and muscle spasm pains prior to admission and since the surgery. Pt admits to untreated sleep apnea. Review of Systems Other palpitations at rest and exertion. Past Family Social History Past Medical History htn dm 2 cervical mylopathy. herniated disc's at c4/5,c6/7 partial hysterectomy lap michelle untreated sleep apnea Reported Medications Robaxin (Methocarbamol) 500 Mg Tab 500 Mg PO TID 4 Days Vitamin P81-Enmna Acid (Cobalamine Combinations) 500-400 Mcg Tab 1 Tab PO DAILY Probiotic (Saccharomyces Boulardii) 250 Mg Cap 250 Mg PO DAILY Amlodipine (Amlodipine Besylate) 2.5 Mg Tab 5 Mg PO DAILY Lisinopril 2.5 Mg Tab 2.5 Mg PO DAILY Triamterene-Hydrochlorothiazide 37.5-25 Mg Cap 1 Cap PO DAILY Hydrocodone-Acetaminophen 5-325 mg Tab 1 Tab PO Q6H PRN Gabapentin 300 Mg Cap 300 Mg PO TID Metformin (Metformin HCl) 500 Mg Tab 500 Mg PO BIDPC Flexeril (Cyclobenzaprine HCl) 5 Mg Tab Unknown Dose PO TID Allergies: Coded Allergies: *MDRO Multi-Drug Resistant Organism (Unverified Allergy, Unknown, 04/07/17) MRSA (elbow wound) - 12/28/13 Family History NC Social History no etoh/tob Physical Exam Vital Signs cervical collar in chair oriented. no distress heart reg. no murmer lung cta abd s/nt ext no edema Vital Signs Date Time Temp Pulse Resp B/P (MAP) Pulse Ox O2 Delivery O2 Flow Rate FiO2 07/25/17 10:05 16 07/25/17 07:54 97.5 110 20 145/87 (106) 99 07/25/17 05:05 98.3 106 18 145/92 (109) 96 07/25/17 01:15 98.0 114 18 148/95 (112) 100 07/24/17 21:04 98.8 116 18 154/92 (112) 94 07/24/17 16:17 97.9 105 18 145/89 (107) 92 07/24/17 13:39 93 07/24/17 11:44 98.2 107 18 148/88 (108) 93 Laboratory Date/Time Source Procedure Growth Status 07/20/17 06:00 Blood Peripheral Aerobic Blood Culture - Preliminary NO GROWTH IN 4 DAYS Resulted 07/20/17 06:00 Blood Peripheral Anaerobic Blood Culture - Preliminary NO GROWTH IN 4 DAYS Resulted 07/20/17 06:31 Sputum Endotracheal Gram Stain - Final Complete 07/20/17 06:31 Sputum Culture - Final S. Aureus Mrsa Complete Result Diagram: 07/22/1742007/22/171 Assessment and Plan Problem List: (1) Tachycardia ICD Codes: R00.0 - Tachycardia, unspecified Status: Acute Plan: 1. sinus tach.. r/o arrhythmia 2. cervical stenosis/myelopathy 3. htn 4. dm2 5. untreated hood 6. aspiration pna. mrsa stop norvasc add metoprolol cont dyazide and lisinipril ekg. telemetry to eval for arrhythmia repeat bmp today will f/u cont ssi abx per ID (2) Aspiration into airway ICD Codes: T17.908A - Unspecified foreign body in respiratory tract, part unspecified causing other injury, initial encounter Status: Acute (3) Cervical disc disease with myelopathy ICD Codes: M50.00 - Cervical disc disorder with myelopathy, unspecified cervical region Status: Acute (4) HOOD (obstructive sleep apnea) ICD Codes: G47.33 - Obstructive sleep apnea (adult) (pediatric) Status: Chronic (5) HTN (hypertension) ICD Codes: I10 - Essential (primary) hypertension Status: Chronic (6) Diabetes mellitus ICD Codes: E11.9 - Type 2 diabetes mellitus without complications Status: Chronic Hiren Rankin MD Jul 25, 2017 10:39
--- NOTE | 2017-07-25 10:59 | HHI.NSPN ---
History Chief Complaint: Sore throat this morning. Interval History 07/19: The patient presented to [facility] [address] to undergo a C4-5 and C6-7 anterior cervical discectomy with placement of a Mobi-C device following resection of a sequestered herniated nucleus pulposis for spinal cord decompression. Post-operatively the patient was transferred to the ISC unit for further care and monitoring due to her not being able to be extubated. 07/20: When seen this morning the patient is intubated and mechanically ventilated. She was on propofol which was held when seen. She did open her eyes to voice and followed commands with all extremities. The bronchoscopy cart is outside the room. 07/21: Patient is status post anterior cervical spine surgery. Reports that her pain is controlled. Denies any problems with arms or legs 07/23: The patient is awake and alert sitting up in bed when seen ordering her lunch. She complains of aching to the right knee, otherwise she has no pain, numbness, tingling or weakness to the extremities. She denies any pain to the midline cervical spine or anterior neck surgical incision. Sensation is intact as is motor strength except for weak hand intrinsics and extrinsics. She states that she would like to go home with Home Health for further therapy. She remains tachycardiac since admission. A review of the medical record from the office shows that the patient had a heart rate of 85 BPM when seen before surgery. Her pre-operative EKG also had a heart rate of 85 BPM. The patient does state that she will occasionally wake up because of palpitations. 07/24: This morning the patient is asleep in bed when seen. She opens her eyes to voice and is awake after that. She complains of midline cervical spine pain. She denies any pain, numbness, tingling or weakness to the extremities. She also complains of constipation. The patient reported that she has had the docusate and Miralax this morning but still hasn't had a bowel movement. It was discussed with her that she did have milk of magnesia and a glycerin suppository ordered as needed but she would have to ask for either of those. She verbalised her understanding. Her heart rate is noted to be under 100 this morning. Her neuro exam is stable. Infectious Disease evaluated the patient yesterday afternoon and recommended a seven day course of antibiotics for the MRSA infection. 07/25: The patient is awake and alert watching TV in bed when seen. Her heart rate increased again after being seen yesterday morning and continues to be elevated. She reports that she does have a sore throat this morning. She denies any headache or dizziness or any pain, numbness, tingling or weakness to the extremities. Her neuro exam is stable. A Hospitalist consult was placed prior to the patient being seen and Dr Rankin has subsequently evaluated the patient. Exam Results 07/23/17 07/23/17 07/24/17 07/24/17 07/25/17 07/25/17 06:00 18:00 06:00 18:00 06:00 18:00 Intake Total 660 ml 200 ml Balance 660 ml 200 ml Intake Oral 560 ml IV Total 100 ml 200 ml # Voids 1 1 1 1 Vital Signs Date Time Temp Pulse Resp B/P (MAP) Pulse Ox O2 Delivery O2 Flow Rate FiO2 07/25/17 10:05 16 07/25/17 07:54 97.5 110 20 145/87 (106) 99 07/25/17 05:05 98.3 106 18 145/92 (109) 96 07/25/17 01:15 98.0 114 18 148/95 (112) 100 07/24/17 21:04 98.8 116 18 154/92 (112) 94 07/24/17 16:17 97.9 105 18 145/89 (107) 92 07/24/17 13:39 93 07/24/17 11:44 98.2 107 18 148/88 (108) 93 07/24/17 08:41 Room Air 07/24/17 07:58 97.9 86 18 137/77 (97) 93 07/24/17 04:00 98.0 106 20 128/83 (98) 93 07/24/17 02:11 98.4 105 18 133/82 (99) 97 07/23/17 20:44 96 Nasal Cannula 1.00 07/23/17 19:40 97.8 118 17 118/73 (88) 96 07/23/17 19:00 Nasal Cannula 1.00 50 07/23/17 16:00 98.6 115 18 134/82 (99) 93 07/23/17 12:00 99.2 118 18 137/70 (92) 94 07/23/17 09:16 93 Nasal Cannula 1.00 07/23/17 09:14 96 Nasal Cannula 1.00 07/23/17 07:20 99.1 110 18 142/87 (105) 92 07/23/17 04:00 98.3 107 20 144/80 (101) 100 07/23/17 02:58 97 Nasal Cannula 1.00 07/23/17 00:00 Nasal Cannula 1.00 07/23/17 00:00 99.3 117 20 117/67 (84) 97 07/22/17 20:00 99.1 114 20 119/78 (92) 99 07/22/17 16:00 97.8 122 19 143/76 (98) 93 07/22/17 15:38 95 Nasal Cannula 1.00 07/22/17 13:11 96 Nasal Cannula 4.00 07/22/17 12:57 93 07/22/17 12:00 98.0 110 18 130/85 (100) 96 Physical Examination GENERAL: Awake & alert watching TV in bed. Affect slightly flat but does interact readily. No apparent distress. HEENT: Normocephalic, atraumatic. PERRLA 2 mm brisk. MMM & pink, tongue midline to protrusion. NECK: Wallace J cervical collar in place. Midline cervical spine moderately TTP at the thoracolumbar spine. Left anterior neck surgical incision NTTP w/intact dressing w/o any shadowing. No JVD. Trachea midline. RESPIRATORY: CTAB w/o W/R/R, equal excursion, nonlaboured, on RA. CARDIOVASCULAR: S1S2 w/regular but rapid rate w/o M/G/R, trace pedal edema. GASTROINTESTINAL: Obese, soft, nontender, positive bowel sounds to all quadrants. MUSCULOSKELETAL: RESTREPO w/o difficulty. Extremities NTTP. NEUROLOGICAL: AAOx3. Speech clear & appropriate. Follows commands w/o difficulty. Sensation intact to light touch to all extremities. Motor strength: hand intrinsics are 4/5 on the right & 4+/5 on the left, o/w 5/ 5 to all major flexion & extension muscle groups to the extremities to include the wrist flexors & extensors. Lab, Micro, Other Results Reviewed EKG done this morning. Sinus tachycardia w/o any ectopy noted, TN interval 40 ms, QRS interval 80 ms & QT interval 330 ms, rate ~ 105 BPM. Medical Decision Making Impression and Plan Impression: (1) HNP (herniated nucleus pulposus), cervical (2) Cervical disc disease with myelopathy 1. C4 5 and C6 7 herniated nucleus pulposus, possible C4 5 osteophytic disc complex 2. Cervical stenosis with myelopathy The patient remains tachycardiac, w/sore throat this morning, neuro exam stable. Afebrile. Sputum culture () with MRSA. Blood cultures x2 w/no growth x5 days on final. Physical Therapy recommends Home Health for further therapy as well as a BSC and wheeled walker. POD #6 () s/p: 1. C4 5 and C6 7 anterior cervical discectomy, resection sequestered herniated nucleus pulposis or spinal cord decompression 2. C4 5 and C6 7 artificial disc placement (Mobi-C) Plan: Neuro checks. Stat CT brain for any decline in neuro status. Wallace J cervical collar. Okay for pharmacologic DVT prophylaxis. Mechanical DVT prophylaxis. Stress ulcer prophylaxis Antibiotics per Infectious Disease. May shower below the neck w/assistance. EKG now. Hospitalist consult. Will start enoxaparin 40 mg subq q12h. BPM & CBC w/diff now. Greg Frazier Jul 25, 2017 10:59
[2017-07-25] MEDS: ENOXAPARIN SODIUM 40 MG/0.4 ML SYRINGE SQ SCH (12:22)
--- NOTE | 2017-07-25 13:35 | EKG ---
Date Performed: 07/25/2017 Time Performed: 10:39:01 PTAGE: 46 years EKG: SINUS TACHYCARDIA ABNORMAL RHYTHM ECG PREVIOUS TRACING : 07/19/2017 07.58 DOCTOR: Henrry Peng Interpretating Date/Time 07/25/2017 13:34:12
[2017-07-25 14:56] LABS: BICARBONATE 29.6 MEQ/L (21.0-32.0); CALCIUM 9.1 MG/DL (8.5-10.1); CREATININE 0.78 MG/DL (0.50-1.00)
[2017-07-25 15:04] LABS: BASOPHIL % 0.3 % (0.0-2.0); EOSINOPHIL # 0.2 TH/MM3 (0-0.4); EOSINOPHIL % 1.8 % (0.0-4.0); HEMOGLOBIN 11.9 GM/DL (11.6-15.3); MEAN CELL VOLUME 89.8 FL (80.0-100.0); MEAN CORPUSCULAR HEMOGLOBIN 30.5 PG (27.0-34.0); MONO % 6.4 % (0.0-8.0); MONOCYTE # 0.8 TH/MM3 (0-0.9); NEUT % 66.5 % (16.0-70.0); PLATELET COUNT 403 TH/MM3 (150-450); RED CELL DISTRIBUTION WIDTH 13.9 % (11.6-17.2); WHITE BLOOD COUNT 12.1 TH/MM3 (4.0-11.0)
[2017-07-25] MEDS: METOPROLOL TARTRATE 25 MG TAB PO SCH (21:01)
[2017-07-26] VITALS (7 sets, daily range): BP systolic 123–135; BP diastolic 61–85; PULSE 90–102; RESP 18–20; TEMP 97.3–98.4; O2SAT 94–96
[2017-07-26] MEDS: ACETAMINOPHEN/HYDROcodone 325 MG/7.5 MG TAB PO PRN ×3 (03:38→14:56)
[2017-07-26] MEDS: ENOXAPARIN SODIUM 40 MG/0.4 ML SYRINGE SQ SCH ×2 (03:44→12:22)
[2017-07-26] MEDS: CHLORHEXIDINE 0.12% (ORAL KIT) 15 ML CUP MT SCH (08:00)
[2017-07-26] MEDS: INSULIN ASPART SUPPLEMENTAL SCALE SQ SCH ×3 (08:00→16:26)
[2017-07-26] MEDS: POLYETHYLENE GLYCOL 17 GM PKG PO SCH (09:05)
[2017-07-26] MEDS: TRIAMTERENE/HCTZ 37.5 MG/25 MG CAP PO SCH (09:06)
[2017-07-26] MEDS: LINEZOLID 600 MG TAB PO SCH (09:06)
[2017-07-26] MEDS: METOPROLOL TARTRATE 25 MG TAB PO SCH (09:06)
[2017-07-26] MEDS: DOCUSATE SODIUM 100 MG CAP PO SCH (09:06)
[2017-07-26] MEDS: LISINOPRIL 5 MG TAB PO SCH (09:07)
[2017-07-26] MEDS: GABAPENTIN 300 MG CAP PO SCH ×2 (09:07→12:22)
[2017-07-26] MEDS: PANTOPRAZOLE SODIUM 40 MG VIAL IVP SCH (09:07)
--- NOTE | 2017-07-26 09:09 | HHI.PR ---
Subjective Remarks no palpitations overnight. slept well. ambulating today. eager for dc Objective Vitals heart reg lung cta abd s/nt ext no edema c collar Vital Signs Date Time Temp Pulse Resp B/P (MAP) Pulse Ox O2 Delivery O2 Flow Rate FiO2 07/26/17 08:55 102 07/26/17 07:58 98.4 100 20 134/67 (89) 94 07/26/17 05:24 98.0 97 18 135/80 (98) 96 07/26/17 01:19 97.4 95 18 123/85 (98) 95 07/25/17 21:03 98.0 99 18 148/82 (104) 96 07/25/17 20:00 100 07/25/17 17:05 18 07/25/17 15:48 98 07/25/17 15:30 98.5 102 20 136/73 (94) 94 07/25/17 12:55 117 07/25/17 11:53 99.0 95 20 138/90 (106) 97 Result Diagram: 07/25/17 1402 07/25/17 1402 A/P Problem List: (1) Tachycardia ICD Codes: R00.0 - Tachycardia, unspecified Status: Acute Plan: 1. sinus tach..no evidence for arrhythmia so far 2. cervical stenosis/myelopathy 3. htn 4. dm2 5. untreated dean 6. aspiration pna. mrsa stopped norvasc added metoprolol cont dyazide and lisinipril telemetry to observe for arrhythmia cont ssi abx per ID will discuss the tachycardia and medication change with pcp and have a close f/u after dc (2) Aspiration into airway ICD Codes: T17.908A - Unspecified foreign body in respiratory tract, part unspecified causing other injury, initial encounter Status: Acute (3) Cervical disc disease with myelopathy ICD Codes: M50.00 - Cervical disc disorder with myelopathy, unspecified cervical region Status: Acute (4) DEAN (obstructive sleep apnea) ICD Codes: G47.33 - Obstructive sleep apnea (adult) (pediatric) Status: Chronic (5) HTN (hypertension) ICD Codes: I10 - Essential (primary) hypertension Status: Chronic (6) Diabetes mellitus ICD Codes: E11.9 - Type 2 diabetes mellitus without complications Status: Chronic Hiren Rankin MD Jul 26, 2017 09:09
--- NOTE | 2017-07-26 11:01 | HHI.NSPN ---
(KarinGreg) History Chief Complaint: Some pain to the neck. (KarinGreg) Interval History 07/19: The patient presented to [facility] to undergo a C4-5 and C6-7 anterior cervical discectomy with placement of a Mobi-C device following resection of a sequestered herniated nucleus pulposis for spinal cord decompression. Post-operatively the patient was transferred to the ISC unit for further care and monitoring due to her not being able to be extubated. 07/20: When seen this morning the patient is intubated and mechanically ventilated. She was on propofol which was held when seen. She did open her eyes to voice and followed commands with all extremities. The bronchoscopy cart is outside the room. 07/21: Patient is status post anterior cervical spine surgery. Reports that her pain is controlled. Denies any problems with arms or legs 07/23: The patient is awake and alert sitting up in bed when seen ordering her lunch. She complains of aching to the right knee, otherwise she has no pain, numbness, tingling or weakness to the extremities. She denies any pain to the midline cervical spine or anterior neck surgical incision. Sensation is intact as is motor strength except for weak hand intrinsics and extrinsics. She states that she would like to go home with Home Health for further therapy. She remains tachycardiac since admission. A review of the medical record from the office shows that the patient had a heart rate of 85 BPM when seen before surgery. Her pre-operative EKG also had a heart rate of 85 BPM. The patient does state that she will occasionally wake up because of palpitations. 07/24: This morning the patient is asleep in bed when seen. She opens her eyes to voice and is awake after that. She complains of midline cervical spine pain. She denies any pain, numbness, tingling or weakness to the extremities. She also complains of constipation. The patient reported that she has had the docusate and Miralax this morning but still hasn't had a bowel movement. It was discussed with her that she did have milk of magnesia and a glycerin suppository ordered as needed but she would have to ask for either of those. She verbalised her understanding. Her heart rate is noted to be under 100 this morning. Her neuro exam is stable. Infectious Disease evaluated the patient yesterday afternoon and recommended a seven day course of antibiotics for the MRSA infection. 07/25: The patient is awake and alert watching TV in bed when seen. Her heart rate increased again after being seen yesterday morning and continues to be elevated. She reports that she does have a sore throat this morning. She denies any headache or dizziness or any pain, numbness, tingling or weakness to the extremities. Her neuro exam is stable. A Hospitalist consult was placed prior to the patient being seen and Dr Rankin has subsequently evaluated the patient. 07/26: When seen this morning the patient is sitting up in the chair talking on the telephone. She says she is doing good. She does report that she has some neck pain "but it ain't nothing." She denies any pain, numbness, tingling or weakness to the extremities. She does endorse an occasional "thumbing" feel inside the neck at the surgical site but says it doesn't bother her. There is no change in her neuro exam. Prior to seeing the patient this practitioner spoke with Dr Rankin who felt she is able to be discharged home this afternoon if her heart rate and blood pressure remain good at noon. He also felt that she should be able to be discharged from Infectious Diseases's perspective since she is on oral linezolid and it is on her insurance's formulary. A call has been placed to Dr Willis to see if she is clear for discharge and what follow up is needed. (Greg Frazier) Exam Results 07/24/17 07/24/17 07/25/17 07/25/17 07/26/17 07/26/17 06:00 18:00 06:00 18:00 06:00 18:00 Intake Total 720 ml Balance 720 ml Intake Oral 720 ml # Voids 1 1 3 1 # Bowel Movements 0 1 Vital Signs Date Time Temp Pulse Resp B/P (MAP) Pulse Ox O2 Delivery O2 Flow Rate FiO2 07/26/17 08:55 102 07/26/17 07:58 98.4 100 20 134/67 (89) 94 07/26/17 05:24 98.0 97 18 135/80 (98) 96 07/26/17 01:19 97.4 95 18 123/85 (98) 95 07/25/17 21:03 98.0 99 18 148/82 (104) 96 07/25/17 20:00 100 07/25/17 17:05 18 07/25/17 15:48 98 07/25/17 15:30 98.5 102 20 136/73 (94) 94 07/25/17 12:55 117 07/25/17 11:53 99.0 95 20 138/90 (106) 97 07/25/17 08:00 97 Room Air 07/25/17 07:54 97.5 110 20 145/87 (106) 99 07/25/17 05:05 98.3 106 18 145/92 (109) 96 07/25/17 01:15 98.0 114 18 148/95 (112) 100 07/24/17 21:04 98.8 116 18 154/92 (112) 94 07/24/17 16:17 97.9 105 18 145/89 (107) 92 07/24/17 13:39 93 07/24/17 11:44 98.2 107 18 148/88 (108) 93 07/24/17 08:41 Room Air 07/24/17 07:58 97.9 86 18 137/77 (97) 93 07/24/17 04:00 98.0 106 20 128/83 (98) 93 07/24/17 02:11 98.4 105 18 133/82 (99) 97 07/23/17 20:44 96 Nasal Cannula 1.00 07/23/17 19:40 97.8 118 17 118/73 (88) 96 07/23/17 19:00 Nasal Cannula 1.00 50 07/23/17 16:00 98.6 115 18 134/82 (99) 93 07/23/17 12:00 99.2 118 18 137/70 (92) 94 (Greg Frazier) Physical Examination GENERAL: Awake & alert sitting in the chair talking on the phone & watching TV. Affect essentially normal & interacts readily. No apparent distress. HEENT: Normocephalic, atraumatic. NECK: [place] J cervical collar in place. Midline cervical spine minimally TTP at the thoracolumbar spine. Left anterior neck surgical incision NTTP w/intact dressing w/o any shadowing. No JVD. Trachea midline. MUSCULOSKELETAL: RESTREPO w/o difficulty. Extremities NTTP. NEUROLOGICAL: AAOx3. Speech clear & appropriate. Follows commands w/o difficulty. Sensation intact to light touch to all extremities. Motor strength: hand intrinsics are 4/5 on the right & 4+/5 on the left, o/w 5/ 5 to all major flexion & extension muscle groups to the extremities to include the wrist flexors & extensors. (Greg Frazier) Lab, Micro, Other Results Laboratory Tests Test 07/25/17 14:02 White Blood Count 12.1 TH/MM3 Red Blood Count 3.90 MIL/MM3 Hemoglobin 11.9 GM/DL Hematocrit 35.0 % Mean Corpuscular Volume 89.8 FL Mean Corpuscular Hemoglobin 30.5 PG Mean Corpuscular Hemoglobin Concent 34.0 % Red Cell Distribution Width 13.9 % Platelet Count 403 TH/MM3 Mean Platelet Volume 7.0 FL Neutrophils (%) (Auto) 66.5 % Lymphocytes (%) (Auto) 25.0 % Monocytes (%) (Auto) 6.4 % Eosinophils (%) (Auto) 1.8 % Basophils (%) (Auto) 0.3 % Neutrophils # (Auto) 8.0 TH/MM3 Lymphocytes # (Auto) 3.0 TH/MM3 Monocytes # (Auto) 0.8 TH/MM3 Eosinophils # (Auto) 0.2 TH/MM3 Basophils # (Auto) 0.0 TH/MM3 CBC Comment DIFF FINAL Differential Comment Blood Urea Nitrogen 12 MG/DL Creatinine 0.78 MG/DL Random Glucose 178 MG/DL Calcium Level 9.1 MG/DL Sodium Level 135 MEQ/L Potassium Level 3.8 MEQ/L Chloride Level 98 MEQ/L Carbon Dioxide Level 29.6 MEQ/L Anion Gap 7 MEQ/L Estimat Glomerular Filtration Rate 96 ML/MIN (Greg Frazier) Medical Decision Making Impression and Plan Impression: (1) HNP (herniated nucleus pulposus), cervical (2) Cervical disc disease with myelopathy 1. C4 5 and C6 7 herniated nucleus pulposus, possible C4 5 osteophytic disc complex 2. Cervical stenosis with myelopathy The patient is doing well this morning w/resolution of her tachycardia and her BP is stable. Her neuro exam is w/o change. Afebrile. Reviewed labs from yesterday. Improvement in leukocytosis from . Sodium 135. Sputum culture () with MRSA. Blood cultures x2 w/no growth x5 days on final. Physical Therapy recommends Home Health for further therapy as well as a BSC and wheeled walker. POD #7 () s/p: 1. C4 5 and C6 7 anterior cervical discectomy, resection sequestered herniated nucleus pulposis or spinal cord decompression 2. C4 5 and C6 7 artificial disc placement (Mobi-C) Plan: Discussed plan of care w/[facility] Hospitalist. Discussed plan of care w/patient. Neuro checks. Stat CT brain for any decline in neuro status. [place] J cervical collar. Okay for pharmacologic DVT prophylaxis. Pharmacologic DVT prophylaxis. Mechanical DVT prophylaxis. Stress ulcer prophylaxis Antibiotics per Infectious Disease. May shower below the neck w/assistance. Plan to discharge this afternoon if HR & BP okay w/Hospitalist and Infectious Disease is okay w/discharge. ADDENDUM at 1156: Spoke w/Dr Willis who said the patient is able to be discharged home from his perspective and may follow up with her PCP. XIMENA (Greg Frazier) Attending Statement The exam, history, and the medical decision-making described in the above note were completed with the assistance of the mid-level provider. I reviewed and agree with the findings presented. I attest that I had a [id number] encounter with the patient on the same day, and personally performed and documented my assessment and findings in the medical record. (Deepak Beth MD) Greg Frazier Jul 26, 2017 11:01 Deepak Beth MD Jul 29, 2017 21:00
[2017-07-26] MEDS ORDERED: DOCU1CAP39 PO (11:37)
[2017-07-26] MEDS ORDERED: POLY17S PO (11:37)
[2017-07-26] MEDS ORDERED: ZYVO600T PO (11:37)
[2017-07-26] MEDS ORDERED: BEDSIDE COMMODE1 MI1 (11:38)
[2017-07-26] MEDS ORDERED: WALKER WHEELS/F1 MIS (11:38)
--- NOTE | 2017-07-26 11:41 | HHI.FF ---
Face to Face Verification Diagnosis: (1) Cervical disc disease with myelopathy (2) HNP (herniated nucleus pulposus), cervical (3) MRSA pneumonia (4) Tachycardia Physical Therapy Order: Evaluate and Treat Occupational Therapy Order: Evaluate and Treat I have seen patient Caprice Jj on 07/26/17. My clinical findings support the need for the requested home health care services because: Deconditioned w/ increased weakness High risk of falls I certify that my clinical findings support that this patient is homebound because: Post-op weakness Unsafe to leave home unassisted Greg Frzaier Jul 26, 2017 11:41
--- NOTE | 2017-07-26 12:23 | HHI.IDPN ---
Note Infectious Disease Note Patient feels okay. No significant cough or sputum production. Afebrile. Denies chest pain. Post C4-C5 and C6-C7 diskectomy. The patient had to be intubated after the surgery because of difficulty with airway. She was extubated the following day. PAST MEDICAL HISTORY 1. MRSA infection of the elbow in 2013. 2. Chronic neck pain. 3. Sleep apnea. 4. History of laparoscopic cholecystectomy. 5. Hysterectomy. 6. Diabetes. 7. Hypertension. 8. Asthma. ALLERGIES NO KNOWN DRUG ALLERGIES. Current Medications Medications (Trade) Dose Ordered Sig/Lisa Route PRN Reason Start Time Stop Time Status Last Admin Dose Admin Lactated Ringer's 1,000 ml @ 0 mls/hr Q0M IV 07/19/17 08:00 07/19/17 10:00 Gabapentin (Neurontin) 300 mg TID PO 07/20/17 09:00 07/26/17 09:07 Triamterene/HCTZ (Dyazide 37.5-25 Mg) 1 cap DAILY PO 07/20/17 09:00 07/26/17 09:06 Patient Own Medication PT OWN MED: COBALAMINE COMBINATION... DAILY PO 07/20/17 09:00 Future Hold Lisinopril (Prinivil) 2.5 mg DAILY PO 07/20/17 09:00 07/26/17 09:07 Miscellaneous (Pill Splitter) 1 ea UNSCH PRN OTHER SEE LABEL COMMENTS 07/19/17 22:00 Patient Own Medication PT OWN MED: PROBIO... DAILY PO 07/20/17 09:00 Future Hold Docusate Sodium (Colace) 100 mg BID PO 07/20/17 09:00 07/26/17 09:06 Pantoprazole Sodium (Protonix Inj) 40 mg DAILY IVP 07/20/17 09:00 07/26/17 09:07 Labetalol HCl (Trandate Inj) 10 mg Q1H PRN IV SYS BP GREATER THAN 170 MMHG 07/19/17 21:45 07/19/17 23:21 Enalaprilat (Vasotec Inj) 1.25 mg Q8H PRN IV PUSH SBP>160, DBP>90 07/19/17 21:45 07/20/17 00:21 Dextrose (D50w (Vial) Inj) 50 ml UNSCH PRN IV PUSH HYPOGLYCEMIA-SEE COMMENTS 2/16/18 04:45 Glucagon (Glucagon Inj) 1 mg UNSCH PRN OTHER HYPOGLYCEMIA-SEE COMMENTS 07/20/17 04:45 Acetaminophen (Tylenol 650 Mg/ 20 ml Liq) 650 mg Q4H PRN PO TEMP >100.4 07/20/17 04:45 Chlorhexidine Gluconate (Peridex 0.12% Liq) 15 ml BID@08,20 MT 07/20/17 08:00 07/22/17 08:00 Acetaminophen/ Hydrocodone Bitart (Enderlin 7.5-325 Mg) 1 tab Q6H PRN PO PAIN 3-5 07/20/17 05:30 07/23/17 23:24 Acetaminophen/ Hydrocodone Bitart ([place]derlin 7.5-325 Mg) 2 tab Q6H PRN PO pain 6-10 07/20/17 05:30 07/26/17 09:07 Morphine Sulfate (Morphine Inj) 5 mg Q4H PRN IV PUSH BREAKTHROUGH PAIN 07/20/17 05:30 07/21/17 04:48 Albuterol Sulfate (Albuterol Neb) 2.5 mg Q2HR NEB PRN NEB WHEEZING 07/20/17 06:15 Phenol (Chloraseptic [place]) 2 spray Q2H PRN OROPHARYNG sore throat 07/20/17 11:00 Insulin Aspart (NovoLOG SUPPLEMENTAL SCALE) 1 ACHS SQ 07/20/17 12:00 07/23/17 21:00 Polyethylene Glycol (Miralax) 17 gm DAILY PO 07/23/17 12:30 07/26/17 09:05 Glycerin (Glycerin Adult Supp) 2 gm DAILY PRN RECTAL Moderate-severe constipation 07/23/17 12:30 07/25/17 18:37 Magnesium Hydroxide (Milk Of Magnesia Liq) 30 ml DAILY PRN PO Mild-moderate constipation 07/23/17 12:30 07/25/17 03:03 Linezolid (Zyvox) 600 mg Q12HR PO 07/23/17 21:00 07/30/17 22:00 07/26/17 09:06 Enoxaparin Sodium (Lovenox Inj) 40 mg Q12H SQ 07/25/17 12:00 07/26/17 03:44 Metoprolol Tartrate (Lopressor) 25 mg Q12HR PO 07/25/17 21:00 07/26/17 09:06 OBJECTIVE: Vital Signs Date Time Temp Pulse Resp B/P (MAP) Pulse Ox O2 Delivery O2 Flow Rate FiO2 07/26/17 08:55 102 07/26/17 07:58 98.4 100 20 134/67 (89) 94 07/26/17 05:24 98.0 97 18 135/80 (98) 96 07/26/17 01:19 97.4 95 18 123/85 (98) 95 07/25/17 21:03 98.0 99 18 148/82 (104) 96 07/25/17 20:00 100 07/25/17 17:05 18 07/25/17 15:48 98 07/25/17 15:30 98.5 102 20 136/73 (94) 94 07/25/17 12:55 117 Laboratory Tests Test 07/25/17 14:02 White Blood Count 12.1 TH/MM3 Red Blood Count 3.90 MIL/MM3 Hemoglobin 11.9 GM/DL Hematocrit 35.0 % Mean Corpuscular Volume 89.8 FL Mean Corpuscular Hemoglobin 30.5 PG Mean Corpuscular Hemoglobin Concent 34.0 % Red Cell Distribution Width 13.9 % Platelet Count 403 TH/MM3 Mean Platelet Volume 7.0 FL Neutrophils (%) (Auto) 66.5 % Lymphocytes (%) (Auto) 25.0 % Monocytes (%) (Auto) 6.4 % Eosinophils (%) (Auto) 1.8 % Basophils (%) (Auto) 0.3 % Neutrophils # (Auto) 8.0 TH/MM3 Lymphocytes # (Auto) 3.0 TH/MM3 Monocytes # (Auto) 0.8 TH/MM3 Eosinophils # (Auto) 0.2 TH/MM3 Basophils # (Auto) 0.0 TH/MM3 CBC Comment DIFF FINAL Differential Comment Laboratory Tests Test 07/25/17 14:02 Blood Urea Nitrogen 12 MG/DL Creatinine 0.78 MG/DL Random Glucose 178 MG/DL Calcium Level 9.1 MG/DL Sodium Level 135 MEQ/L Potassium Level 3.8 MEQ/L Chloride Level 98 MEQ/L Carbon Dioxide Level 29.6 MEQ/L Anion Gap 7 MEQ/L Estimat Glomerular Filtration Rate 96 ML/MIN PHYSICAL EXAMINATION GENERAL: No acute distress. She is awake and alert and oriented. Currently sitting in a chair. HEENT: Head is atraumatic. Extraocular movements grossly intact, pupils reactive to light. No icterus. Oropharynx moist mucosa without lesions. NECK: Supple without adenopathy. LUNGS: Decreased clear breath sounds. HEART: Regular S1-S2. No murmurs, rubs or gallops. ABDOMEN: Bowel sounds present, soft, no tenderness appreciated. EXTREMITIES: No clubbing or cyanosis or edema. SKIN: No rash. NEUROLOGIC: No gross focal findings. PSYCHIATRIC: Calm and cooperative. IMPRESSION 1. MRSA pneumonia. 2. Leukocytosis. Improved. 3. Status post cervical diskectomy. RECOMMENDATIONS Continue PO Zyvox for MRSA x 4 more days. Okay for discharge from my standpoint. Follow up with PCP. Shahram Willis MD Jul 26, 2017 12:23
[2017-07-26] MEDS ORDERED: METO25TA3 PO (12:58)
--- NOTE | 2017-07-26 13:28 | HHI.DCPOC ---
Discharge Care Plan Diagnosis: (1) Cervical disc disease with myelopathy (2) HNP (herniated nucleus pulposus), cervical (3) Tachycardia (4) MRSA pneumonia Your Health Problems Are: Incision/Drains Exercise Tolerance Loss of Movements Goals to Promote Your Health * To prevent worsening of your condition and complications * To maintain your health at the optimal level Wear the cervical collar at all times. It may briefly be removed for personal hygiene. No lifting, bending, pushing, pulling or other strenuous activity. Leave the dressing on over the surgical incision until . After that you may take the outer dressing off but leave the steri-strips on and let them fall off on their own. No showering until the surgical incision is totally healed. Take the pain medication as prescribed. Avoid taking any medication that contains aspirin or NSAIDs (ibuprofen, naproxen , Motrin, Advil, Naprosyn) for at least a month. Follow up in the office approximately for a wound check. Directions to Meet Your Goals Take your medications as prescribed Follow your dietary instruction Follow activity as directed Wear the cervical collar at all times. It may briefly be removed for personal hygiene. No lifting, bending, pushing, pulling or other strenuous activity. Leave the dressing on over the surgical incision until . After that you may take the outer dressing off but leave the steri-strips on and let them fall off on their own. No showering until the surgical incision is totally healed. Take the pain medication as prescribed. Avoid taking any medication that contains aspirin or NSAIDs (ibuprofen, naproxen , Motrin, Advil, Naprosyn) for at least a month. Follow up in the office approximately for a wound check. Keep your appointments as scheduled Take your immunizations and boosters as scheduled If your symptoms worsen call your PCP, if no PCP go to Urgent Care Center or Emergency Room Smoking is Dangerous to Your Health. Avoid second hand smoke Call the 24-hour hour crisis hotline for domestic abuse at Greg Frazier Jul 26, 2017 13:28
--- NOTE | 2017-07-26 13:33 | HHI.DS ---
Discharge Summary Admission Date Jul 19, 2017 at 21:20 Discharge Date: Jul 26, 2017 Admitting Diagnosis (1) Cervical disc disease with myelopathy Diagnosis: Principal ICD Code: M50.00 - Cervical disc disorder with myelopathy, unspecified cervical region Status: Acute (2) HNP (herniated nucleus pulposus), cervical Diagnosis: Secondary ICD Code: M50.20 - Other cervical disc displacement, unspecified cervical region (3) MRSA pneumonia Diagnosis: Secondary ICD Code: J15.212 - Pneumonia due to Methicillin resistant Staphylococcus aureus (4) Tachycardia Diagnosis: Secondary ICD Code: R00.0 - Tachycardia, unspecified Status: Acute (5) Aspiration into airway Diagnosis: Secondary ICD Code: T17.908A - Unspecified foreign body in respiratory tract, part unspecified causing other injury, initial encounter Status: Acute (6) HOOD (obstructive sleep apnea) Diagnosis: Secondary ICD Code: G47.33 - Obstructive sleep apnea (adult) (pediatric) Status: Chronic (7) HTN (hypertension) Diagnosis: Secondary ICD Code: I10 - Essential (primary) hypertension Status: Chronic (8) Diabetes mellitus Diagnosis: Secondary ICD Code: E11.9 - Type 2 diabetes mellitus without complications Status: Chronic Procedures : 1. C4 5 and C6 7 anterior cervical discectomy, resection sequestered herniated nucleus pulposus or spinal cord decompression 2. C4 5 and C6 7 artificial disc placement (Mobi-C) CBC/BMP: 07/25/17 1402 07/25/17 1402 Significant Findings Laboratory Tests Test 07/25/17 14:02 White Blood Count 12.1 TH/MM3 (4.0-11.0) Red Blood Count 3.90 MIL/MM3 (4.00-5.30) Neutrophils # (Auto) 8.0 TH/MM3 (1.8-7.7) Random Glucose 178 MG/DL (74-106) Sodium Level 135 MEQ/L (136-145) Hospital Course 07/19: The patient presented to [facility] to undergo a C4-5 and C6-7 anterior cervical discectomy with placement of a Mobi-C device following resection of a sequestered herniated nucleus pulposis for spinal cord decompression. Post-operatively the patient was transferred to the ISC unit for further care and monitoring due to her not being able to be extubated. 07/20: When seen this morning the patient is intubated and mechanically ventilated. She was on propofol which was held when seen. She did open her eyes to voice and followed commands with all extremities. The bronchoscopy cart is outside the room. 07/21: Patient is status post anterior cervical spine surgery. Reports that her pain is controlled. Denies any problems with arms or legs 07/23: The patient is awake and alert sitting up in bed when seen ordering her lunch. She complains of aching to the right knee, otherwise she has no pain, numbness, tingling or weakness to the extremities. She denies any pain to the midline cervical spine or anterior neck surgical incision. Sensation is intact as is motor strength except for weak hand intrinsics and extrinsics. She states that she would like to go home with Home Health for further therapy. She remains tachycardiac since admission. A review of the medical record from the office shows that the patient had a heart rate of 85 BPM when seen before surgery. Her pre-operative EKG also had a heart rate of 85 BPM. The patient does state that she will occasionally wake up because of palpitations. 07/24: This morning the patient is asleep in bed when seen. She opens her eyes to voice and is awake after that. She complains of midline cervical spine pain. She denies any pain, numbness, tingling or weakness to the extremities. She also complains of constipation. The patient reported that she has had the docusate and Miralax this morning but still hasn't had a bowel movement. It was discussed with her that she did have milk of magnesia and a glycerin suppository ordered as needed but she would have to ask for either of those. She verbalised her understanding. Her heart rate is noted to be under 100 this morning. Her neuro exam is stable. Infectious Disease evaluated the patient yesterday afternoon and recommended a seven day course of antibiotics for the MRSA infection. 07/25: The patient is awake and alert watching TV in bed when seen. Her heart rate increased again after being seen yesterday morning and continues to be elevated. She reports that she does have a sore throat this morning. She denies any headache or dizziness or any pain, numbness, tingling or weakness to the extremities. Her neuro exam is stable. A Hospitalist consult was placed prior to the patient being seen and Dr Rankin has subsequently evaluated the patient. 07/26: When seen this morning the patient is sitting up in the chair talking on the telephone. She says she is doing good. She does report that she has some neck pain "but it ain't nothing." She denies any pain, numbness, tingling or weakness to the extremities. She does endorse an occasional "thumbing" feel inside the neck at the surgical site but says it doesn't bother her. There is no change in her neuro exam. Prior to seeing the patient this practitioner spoke with Dr Rankin who felt she is able to be discharged home this afternoon if her heart rate and blood pressure remain good at noon. He also felt that she should be able to be discharged from Infectious Diseases's perspective since she is on oral linezolid and it is on her insurance's formulary. A call was placed to Dr Willis who felt she was able to be discharged home and could follow up with her PCP. Pt Condition on Discharge: Good Discharge Disposition: Disch w/ Home Health Serv Discharge Instructions DIET: Follow Instructions for: As Tolerated, No Restrictions ACTIVITIES You can perform: Weight Bearing As Suzanne Activities to Avoid: Lifting/Bending, Strenuous Activity, Bathing, Shower ADDITIONAL Activity Instructio: Wear the cervical collar at all times. It may briefly be removed for personal hygiene. No lifting, bending, pushing, pulling or other strenuous activity. No showering until the surgical incision is totally healed. Additional Information Leave the dressing on over the surgical incision until . After that you may take the outer dressing off but leave the steri-strips on and let them fall off on their own. No showering until the surgical incision is totally healed. Take the pain medication as prescribed. Avoid taking any medication that contains aspirin or NSAIDs (ibuprofen, naproxen , Motrin, Advil, Naprosyn) for at least a month. Follow up in the office approximately for a wound check. Greg Frazier Jul 26, 2017 13:33
== END 2017-07-26 17:35 | disposition home health service (06) | DRG 518 ==
LOC: HSDC 07:34 → N03A 21:20 → N05B 07-22 06:25
PROVIDERS: ADMIT Neurological Surgery; ATTEND Neurological Surgery
PROC: 00NW0ZZ Release Cervical Spinal Cord, Open Approach (ICD-10-PCS; 2017-07-19)
PROC: 0RR30JZ Replacement of Cervical Vertebral Disc with Synthetic Substitute, Open Approach (ICD-10-PCS; principal; 2017-07-19 13:21)
DX: M50.021 Cervical disc disorder at C4-C5 level with myelopathy (principal); J15.212 Pneumonia due to Methicillin resistant Staphylococcus aureus; J69.0 Pneumonitis due to inhalation of food and vomit; Z68.41 Body mass index [BMI] 40.0-44.9, adult; E66.01 Morbid (severe) obesity due to excess calories; M48.02 Spinal stenosis, cervical region; I10 Essential (primary) hypertension; E11.9 Type 2 diabetes mellitus without complications; M50.023 Cervical disc disorder at C6-C7 level with myelopathy; G47.33 Obstructive sleep apnea (adult) (pediatric); J45.909 Unspecified asthma, uncomplicated; T88.4XXA Failed or difficult intubation, initial encounter; R09.02 Hypoxemia; G89.29 Other chronic pain; K59.00 Constipation, unspecified; R00.0 Tachycardia, unspecified; Z71.3 Dietary counseling and surveillance; Z86.14 Personal history of Methicillin resistant Staphylococcus aureus infection; Z79.84 Long term (current) use of oral hypoglycemic drugs
CPT/HCPCS: 71045; 72020; 73110; 73130; 76000; 80048; 82805; 82948; 83735; 84100; 85025; 85027; 85610; 85652; 85730; 86403; 86430; 87040; 87070; 87147; 87186; 87205; 87641; 90732; 93005; 93306; 94002; 94003; 94150; 94640; 94664; C1889; C9113; J0131; J0295; J0690; J1100; J1580; J1650; J1815; J1940; J2270; J2370; J3010; J7040; J7050; J7120; L0150; L0172